=== PATIENT | male | born 1975 | race Caucasian/White ===

== ENCOUNTER 2018-08-31 12:24 | Outpatient (CLI) | payer OTHER, SELFPAY ==
[2018-09-01 16:44] LABS: Black/White Pepper IgE <0.35 kU/L; Celery IgE 0.47 kU/L; Clam IgE <0.35 kU/L; Crab IgE 5.86 kU/L; Green Pepper IgE <0.35 kU/L; Lobster IgE 1.56 kU/L; Oyster IgE 0.41 kU/L; Scallop IgE 5.76 kU/L; Shrimp IgE 7.65 kU/L
== END 2018-08-31 12:44 ==
PROVIDERS: PCP Neuromusculoskeletal Medicine & OMM; Visit Provider Internal Medicine
DX: Z01.82 Encounter for allergy testing (principal); T78.40XA Allergy, unspecified, initial encounter
CPT/HCPCS: 36415; 86003

== ENCOUNTER 2020-02-29 07:13 | Outpatient (REF) | payer OTHER, SELFPAY ==
[2020-02-29 07:45] LABS: ALT 115 U/L (16-63); AST 58 U/L (15-37); Albumin 3.9 g/dL (3.4-5.0); Alkaline Phosphatase 87 U/L (46-116); Anion Gap 8.2 mmol/L (3-11); BUN 18 mg/dL (7-18); Bilirubin, Total 0.3 mg/dL (0.2-1.0); CO2 29.8 mmol/L (21.0-32.0); CREATININE 1.15 mg/dL (0.70-1.30); Calcium 9.2 mg/dL (8.5-10.1); Calculated LDL 133 mg/dL (<100); Chloride 100 mmol/L (98-107); Cholesterol 198 mg/dL (<200); Glucose 121 mg/dL (74-106); HDL Cholesterol 28 mg/dL (40-60); Potassium 4.6 mmol/L (3.5-5.1); Sodium 138 mmol/L (136-145); Total Protein 7.3 g/dL (6.4-8.2); Triglyceride 186 mg/dL (<150)
== END 2020-02-29 07:33 ==
LOC: LBN 07:13
PROVIDERS: PCP Nurse Practitioner Family; Visit Provider Neuromusculoskeletal Medicine & OMM
DX: I10 Essential (primary) hypertension (principal); E78.2 Mixed hyperlipidemia
CPT/HCPCS: 80053; 80061

== ENCOUNTER 2020-09-28 14:50 | Emergency (ER) | payer OTHER, SELFPAY ==
[2020-09-28 14:53] VITALS: BP 177/99; PULSE 94; RESP 18; TEMP 36.7; O2SAT 100
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
== END 2020-09-28 16:25 | disposition home or self-care (01) ==
PROVIDERS: Emergency Provider Physician Assistant; PCP Nurse Practitioner Family
DX: S42.431A Displaced fracture (avulsion) of lateral epicondyle of right humerus, initial encounter for closed fracture (principal); S70.12XA Contusion of left thigh, initial encounter; V03.09XA Pedestrian with other conveyance injured in collision with car, pick-up truck or van in nontraffic accident, initial encounter; Y99.0 Civilian activity done for income or pay; I10 Essential (primary) hypertension
CPT/HCPCS: 90471; 99284; 73080; L3670

== ENCOUNTER 2024-07-12 09:48 | Outpatient (CLI) | payer OTHER, SELFPAY ==
[2024-07-12 12:31] LABS: Abs Immature Grans 0.01 10^3/uL (0.0-0.06); Absolute Basophil Count 0.04 10^3/uL (0.0-0.2); Absolute Eosinophil Count 0.31 10^3/uL (0.0-0.7); Absolute Lymphocyte Count 1.72 10^3/uL (1.2-3.4); Absolute Monocyte Count 0.45 10^3/uL (0.1-0.8); Absolute Neutrophil Count 2.46 10^3/uL (1.2-6.7); Basophils % 0.8 %; Eosinophils % 6.2 %; HCT 48.4 % (40.0-50.0); HGB 16.6 g/dL (13.5-17.5); Immature Grans % 0.2 %; Lymphocytes % 34.5 %; MCH 32.9 pg (27.0-33.0); MCHC 34.3 % (32.0-36.0); MCV 96 fL (80-95); MPV 9.8 fL (8.0-11.0); Neutrophils % 49.3 %; Platelet Count 121 10^3/uL (130-400); RBC 5.04 10^6/uL (4.36-5.78); RDW 11.9 % (11.8-14.1); WBC 4.99 10^3/uL (4.4-10.8)
[2024-07-12 12:46] LABS: ALT 146 U/L (16-63); AST 89 U/L (15-37); Albumin 4.1 g/dL (3.4-5.0); Alkaline Phosphatase 145 U/L (46-116); Anion Gap 7.3 mmol/L (3-11); BUN 23 mg/dL (7-18); Bilirubin, Total 0.73 mg/dL (0.2-1.0); CO2 30.7 mmol/L (21.0-32.0); CREATININE 1.2 mg/dL (0.70-1.30); Calcium 10.7 mg/dL (8.5-10.1); Chloride 97 mmol/L (98-107); Glucose 395 mg/dL (74-106); Potassium 4.6 mmol/L (3.5-5.1); Sodium 135 mmol/L (136-145); Total Protein 8.6 g/dL (6.4-8.2)
== END 2024-07-12 09:49 | disposition home or self-care (01) ==
LOC: LOS 09:49
PROVIDERS: PCP Neuromusculoskeletal Medicine & OMM; Referring Provider Nurse Practitioner Family; Visit Provider Nurse Practitioner Family
DX: R21 Rash and other nonspecific skin eruption (principal); L98.9 Disorder of the skin and subcutaneous tissue, unspecified; L25.9 Unspecified contact dermatitis, unspecified cause
CPT/HCPCS: 36415; 80053; 85025; 87070; 87205

== ENCOUNTER 2024-10-08 12:51 | Day surgery (SDC) | payer BC, SELFPAY ==
--- NOTE | 2024-10-07 20:21 | COLE_ITS ---
Date of service: 10/08/24 Time of Service: 16:30 Colonoscopy Report Date of procedure: 10/08/24 Pre-op diagnosis general: CRC screening/hx of BRBPR Post-op diagnosis procedure note: other (polyps ) Surgeon: Winnie Diaz Anesthesia Type: General:No Airway Estimated blood loss (mL): 3 Pathology: other Complications: None Disposition: same day Prep: Miralax/Dulcolax Retraction Time: 21 Procedure Description: After informed consent was obtained, explaining risks of the procedure, including but not limits to: bleeding, infections, complications of anesthesia, perforations (which may require antibiotics and /or surgery and stay in the hospital), and abdominal pain/cramping. The patient was taken to the procedure room and placed in a left decubitous position. Monitors were applied and a time out was done. The patients name, date of , procedure, allergies to medications and metal in their body was reviewed. The patient was then sedated. Once sedated and comfortable a rectal exam was done. External exam was normal. Internal exam revealed a normal sphincter tone and no palpable masses. The prostate no palpable masses noted today. The previously lubricated Olympus scope was then introduced (see RN notes for scope number) and retrofelexed. No internal hemorrhoids were identified. The scope was then advanced to the cecum without difficulty. The TI and appendiceal orifice were identified. The scope was then slowly retracted over 21 minutes back into the rectum. Polyps: A 1.5cm peduculated polyp polyp was found at 60cm. This is on a long stalk. This was removed with a cold snare. A clip was placed across the defect. A pedunculated 2cm polyp was found at 40cm. This is also on a long stalk. This was removed with a cold snare. The clip was placed across the decft. All of the specimen was retrieved. This will be sent to pathology. There is no bleeding noted from the polypectomy site. Diverticula: none. The mucosa is pink and healthy w/ a normal vascular pattern. The scope was removed, and the patient was woken up and taken back to Same day surgery in stable condition. The patient tolerated the procedure well and there were no immediate complications. Follow up: The patient should follow up in 2-3 years, unless they develop changes in bowel habits or other new gastrointestinal complaints. [place] Bowel Prep [place] Bowel Prep Right Colon: 2 Left Colon: 2 Transverse Colon: 2 Total Score: 6
--- NOTE | 2024-10-07 20:23 | PDOC.DSDIS_ITS ---
Date of service: 10/08/24 Time of Service: 16:41 Discharge Plan Disposition Patient Disposition: Home Condition: Good Discharge Details Reason For Visit: colon cancer screening Attending Provider: Winnie Diaz Primary Care Provider: Leo Caldwell Home Meds and New Rx's Prescriptions: Continued triamcinolone acetonide 0.1 % cream 1 applic topical BID PRN (Reason: rash) Qty: 30 0RF Rx Instructions: apply to affected area 2x daily as needed metformin 500 mg tablet 500 mg PO DAILY Mounjaro 5 mg/0.5 mL pen injector 5 mg subcut QWEEK omeprazole 40 MG capsule,delayed release(DR/EC) 1 cap PO DAILY Discontinued bisacodyl [Dulcolax (bisacodyl)] 5 mg tablet,delayed release (DR/EC) 5 mg PO ONCE Qty: 4 0RF Rx Instructions: Take per colonoscopy instructions provided by ordering providers office polyethylene glycol 3350 17 gram/dose powder 17 g PO ONCE Qty: 238 0RF Rx Instructions: Take per colonoscopy instructions provided by ordering providers office Discharge Instructions Additional Instructions: DSU Colonoscopy Post- Op Instructions Instructions for Everyone who is given Anesthesia: For your safety, please do the following for the next twenty-four (24) hours: *Do Not operate a motor vehicle (car, truck, motorcycle, etc.) *Do Not drink alcoholic beverages or use any recreational drugs for the first 24 hours or while taking pain medications. The medications in your body may have a reaction that can be dangerous. *Do Not make any important decisions or sign any important papers. Findings: x2 large polyps Follow up: My office will send you a letter with the results of the biopsy and when we want to repeat your colonoscopy, most likely 2-yrs. 1. No lifting over 20 pounds or strenuous activity for the first 24 hours after your procedure. After 24 hours there are no restrictions on your activity but you may feel fatigued for a few days. 2. After you arrive home you may have a light meal and return to your normal diet as you can tolerate it without feeling sick to your stomach. 3. You may have a bloated, gaseous feeling in your belly (abdomen) after a colonoscopy. Passing gas and belching will help. Walking or lying down on your left side with your knees flexed may relieve the discomfort. Call the office at [phone] (Office) or [phone] (Hospital) right away if you notice any of the following: a.Vomiting of blood or ?coffee ground stools?. b.Rectal bleeding 1Tbsp, blood clots or continuous bleeding. c.Severe belly (abdominal) pain. d.A hard distended belly (abdomen) and an inability to pass gas. 4. Please don?t expect to have a normal BM (bowel movement) for 2-3 days after your procedure. 5. If there are questions regarding the findings of your procedure, please contact your doctor 6. If you are unable to contact your doctor with a problem, contact the hospital at [phone]. 7. Continue all your regular medications unless directed otherwise. I understand the above instructions and have no questions. Signature of Patient or Adult Escort Name of Responsible Adult Escort Signature of Nurse Date/Time Stand Alone Forms: Anesthesia Discharge Jose Haro (DSU) Activity:: see above Diet:: see above Discharge Orders Discharge Orders: Discharge Order (Routine); Ordered 10/08/24 Ordered By: Winnie Diaz DS: Diagnosis Discharge Diagnosis (1) Screening for malignant neoplasm of colon performed: Status: Acute Asessment and Plan: The patient is seen and examined after their colonoscopy.? The patient has been able to pass gas.? They are not having abdominal pain.? They have been able to tolerate liquids and a snack.? They do not have any nausea or vomiting.? They are not having any chest pain or shortness of breath.??? They are not having any rectal bleeding. Their vital signs have been stable-see nursing notes. We discussed findings during their colonoscopy, and any biopsies that were done/polyps that were removed. The patient will be sent a letter with any biopsy results, and when to repeat the colonoscopy.-see discharge instructions. Patient was given explicit instructions to follow-up regarding colonoscopy-refer to discharge instructions.? We reviewed resumption of medications. Patient verbalized understanding and discharged in stable and satisfactory condition- See nursing notes. (2) Type 2 diabetes mellitus: (3) Hypertension: Status: Chronic (4) Chronic GERD: Status: Acute (5) Adenomatous polyps: Status: Acute
[2024-10-08 13:11] VITALS: BP 139/90; PULSE 98; RESP 20; TEMP 36.3; O2SAT 100
[2024-10-08] MEDS: Normal Saline Flush 10 ML SYR IV (13:24)
[2024-10-08 14:17] VITALS: BMI 30.2
--- NOTE | 2024-10-08 14:17 | W.ANESPRE ---
General Info Date of Service Date Performed: 10/08/24 Height: 6 ft 2 in Weight: 106.9 kg Body Mass Index (BMI): 30.2 Surgical Procedure: Operation Date: 10/08/24 13:20 Proposed Procedure Side Surgeon jojo Diaz, DO Meds Allergies and Home Medications Allergies Allergy/AdvReac Type Severity Reaction Status Date / Time shellfish derived Allergy Severe Swelling/Ed Verified 10/08/24 13:10 jyoti blueberry (Blueberry) Allergy Mild Hives Verified 10/08/24 13:10 diphenhydramine HCl (From AdvReac Mild Swelling/Ed Verified 10/08/24 13:10 Benadryl) jyoti Home Medication ?Medication ?Instructions ?Recorded omeprazole 40 mg capsule,delayed 1 cap PO DAILY 08/03/14 release triamcinolone acetonide 0.1 % 1 applic topical BID PRN rash #30 07/12/24 topical cream grams metformin 500 mg tablet 500 mg PO DAILY 09/23/24 tirzepatide 5 mg/0.5 mL 5 mg subcut QWEEK 09/23/24 subcutaneous pen injector (Miracle) Current Visit Medications: Current Medications Generic Name Dose Route Start Last Admin Trade Name Freq PRN Reason Stop Dose Admin Hyoscyamine Sulfate 0.125 mg 10/08/24 08:19 Hyoscyamine 0.125 Mg Sl/Oral/Chew SL 11/07/24 08:18 DIRECTED PRN Ringer's Solution 1,000 mls @ 80 mls/hr 10/08/24 06:00 IV 10/08/24 23:59 INFUSION WHITNEY Ringer's Solution 500 mls @ 80 mls/hr 10/08/24 06:00 IV 10/08/24 23:59 INFUSION WHITNEY IV Miscellaneous Supplies 1 each 10/08/24 06:00 Iv Access IV 10/08/24 23:59 DIRECTED WHITNEY Ondansetron HCl 4 mg 10/08/24 08:19 Ondansetron 4 Mg/2 Ml Vial IVP 11/07/24 08:18 Q4H PRN PRN Nausea / Vomiting Sodium Chloride 0 ml 10/08/24 06:00 10/08/24 13:24 Normal Saline Flush 10 Ml Syr IV 10/08/24 23:59 10 ml PRN PRN Administration Sodium Chloride 0 ml 10/08/24 06:00 Normal Saline 10 Ml Vial IJ 10/08/24 23:59 DIRECTED PRN Sterile Water 0 ml 10/08/24 06:00 Water,Injection,Sterile 10 Ml Vial IJ 10/08/24 23:59 DIRECTED PRN PFSH Active Problems Active Problems: Problem Status Onset Code Screening for malignant neoplasm of colon performed Acute Z12.11 Right shoulder injury Acute 09/28/20 S49.91XA Left anterior shoulder pain Acute M25.512 Hypertension Chronic I10 Chronic GERD Acute K21.9 Medical History Medical History Tietze disease Type 2 diabetes mellitus Surgical History Surgical History (Updated 10/08/24 @ 13:25 by Rani Samuel) History of colonoscopy (~09/2024) Hx of wisdom tooth extraction 20 years ago Tobacco Smoking/Tobacco Use Status: Former Tobacco Use Alcohol Alcohol Intake: current Alcohol intake frequency: holidays/special occasions only Substance Use Substance use: Never Substance use type: does not use Vital Signs and Lab Results Vital Signs Most Recent Vital Signs in EMR: Most Recent Vital Signs Temp Pulse Resp BP Pulse Ox 36.3 C L 98 H 20 139/90 100 10/08/24 13:11 10/08/24 13:11 10/08/24 13:11 10/08/24 13:11 10/08/24 13:11 Point of Care Results Point of Care Results: Finger Stick Blood Glucose 89 10/08/24 13:08 Lab Results Blood Type / Crossmatch: No Data to Display Complete Blood Count: No Data to Display Complete Metabolic Panel: No Data to Display Liver Function Panel: No Data to Display Coagulation Panel: No Data to Display Cardiac Panel: No Data to Display Arterial Blood Gas: No Data to Display Venous Blood Gas: No Data to Display Pancreas Panel: No Data to Display Thyroid Panel: No Data to Display Infectious Disease: No Data to Display Blood Cultures: No Data to Display Toxicology Panel: No Data to Display Imaging and Studies Imaging and Studies Study information below may be from another EMR and interpreted by another provider. Please see original notes in EMR for more complete details. Stress Test Summary: SUMMARY: Normal stress test after maximal exercise with nonsignificant ST-T segment changes and no reproduction of symptoms. Good exercise capacity. 08/03/14 Anesthesia Assessment and Plan Anesthesia History Personal History: Other (rough wake ups, can be combative) Family History: No Family History of Anesthesia Complications Exercise Tolerance Exercise Tolerance: Metabolic Equivalents>4 Pertinent Negatives Pertinent Negatives: No Symptoms of GERD, No Major Cardiovascular Symptoms or Complaints, No Major Pulmonary Symptoms or Complaints and No History of CVA/TIA Cardiac & Pulmonary Exam Cardiac Exam: Normal S1/S2 Heart Sounds Pulmonary Exam: Clear Bilateral Breath Sounds Implantable Cardiac Device Does patient have a Pacemaker or an ICD?: No Airway Exam Known Difficult Airway: No Mallampati Class: 3 Mouth Opening: Normal (> 3cm) Thyromental Distance: Greater than 3 cm Neck Range of Motion: Full ROM Neck Circumference: Normal Teeth Condition: Normal Dentition ASA Classification ASA Score: ASA 2 Emergency Case?: No NPO Status NPO Status: NPO Clears >2 hours, Solids >8 hours Anesthesia Plan Resuscitation Status: Full Code Anesthesia Technique: General Anesthesia Airway Planned: Natural Airway Monitors Used: Standard Monitors
--- NOTE | 2024-10-08 14:57 | BOWEL_PTH ---
PATIENT: Epi Sparrow LOC: [facility] U#:[id number] AGE/SX: 48/M ROOM: RE10/08/[address]: Winnie Diaz : 1975 BED: DIS: 10/08/2024 SPEC #: [id number] RECD: 10/08/24 18:09 STATUS: RODY RE #: [id number] MOE: 10/08/24 14:[address]: Winnie Diaz DEPT: Surgical Specimen RECD BY: Korina Crum ENTERED: 10/08/24 18:10 SP TYPE: Bowel OTHR DR: Leo Caldwell Tissues: 1 - BIOPSY BOWEL 2 - BIOPSY BOWEL Procedures: GROSS AND MICRO LEVEL 4 Comments: [id number]
[2024-10-08] MEDS: Glucagon 1 MG VIAL (15:25)
[2024-10-08] MEDS: Water,Injection,Sterile 10 ML VIAL (15:25)
[2024-10-08 15:36] VITALS: BP 121/81; PULSE 87; RESP 16; TEMP 36.1; O2SAT 96
[2024-10-08 16:09] VITALS: BP 123/75; PULSE 73; RESP 16; TEMP 36.5; O2SAT 99
--- NOTE | 2024-10-08 16:22 | W.ANESPOSTOP ---
Postoperative Evaluation Date, Time and Location Date Performed: 10/08/24 Time Performed: 16:22 Patient Location: Day Surgery Unit Vital Signs Most Recent Imported Vital Signs: Most Recent Vital Signs Temp Pulse Resp BP Pulse Ox 36.5 C 73 16 123/75 99 10/08/24 16:09 10/08/24 16:09 10/08/24 16:09 10/08/24 16:09 10/08/24 16:09 Pain Score Most Recent Pain Score: Most Recent Pain Score Pain Level 0 10/08/24 16:09 Assessment Mental Status: Awake (Alert & Oriented to Patient Baseline) Airway and Respiratory Function: Patent airway with normal (patient baseline) respiratory exam Cardiovascular Function: Hemodynamically Stable Hydration Status: Adequately Hydrated Nausea & Vomiting: No Nausea or Vomiting Pain: Pt. Denies Any Pain Peripheral Nerve Block: Patient did not receive a nerve block
== END 2024-10-08 17:19 | disposition home or self-care (01) ==
LOC: SUR 12:51
PROVIDERS: PCP Neuromusculoskeletal Medicine & OMM; Visit Provider Surgery
PROC: 0DJD8ZZ Inspection of Lower Intestinal Tract, Via Natural or Artificial Opening Endoscopic (ICD-10-PCS; CPT 45378; principal; 2024-10-08 13:15)
DX: Z12.11 Encounter for screening for malignant neoplasm of colon (principal); E11.9 Type 2 diabetes mellitus without complications; I10 Essential (primary) hypertension; D12.4 Benign neoplasm of descending colon; D12.5 Benign neoplasm of sigmoid colon
CPT/HCPCS: 45380; 88305; J1610; J2704

== ENCOUNTER 2024-10-12 14:29 | Outpatient (CLI) | payer BC, SELFPAY ==
[2024-10-12 12:40] LABS: Hemoglobin A1C 6.2 % (<5.7)
[2024-10-12 12:46] LABS: ALT 43 U/L (16-63); AST 31 U/L (15-37); Albumin 4.2 g/dL (3.4-5.0); Alkaline Phosphatase 91 U/L (46-116); Anion Gap 6.7 mmol/L (3-11); BUN 22 mg/dL (7-18); Bilirubin, Total 0.46 mg/dL (0.2-1.0); CO2 29.3 mmol/L (21.0-32.0); CREATININE 1.1 mg/dL (0.70-1.30); Calcium 10.2 mg/dL (8.5-10.1); Chloride 104 mmol/L (98-107); Estimated GFR 82.81 (mL/min/1.73m2); Glucose 93 mg/dL (74-106); Potassium 4.5 mmol/L (3.5-5.1); Sodium 140 mmol/L (136-145); Total Protein 8.3 g/dL (6.4-8.2)
== END 2024-10-12 14:30 | disposition home or self-care (01) ==
LOC: LBO 14:29
PROVIDERS: PCP Neuromusculoskeletal Medicine & OMM; Visit Provider Specialist/Technologist Athletic Trainer
DX: E11.9 Type 2 diabetes mellitus without complications (principal); L30.9 Dermatitis, unspecified
CPT/HCPCS: 36415; 80053; 83036

== ENCOUNTER 2025-01-10 10:57 | Emergency (ER) | payer OTHER, SELFPAY ==
[2025-01-10 11:27] VITALS: BP 138/88; PULSE 87; RESP 12; TEMP 36.9; O2SAT 97
[2025-01-10 13:30] VITALS: BP 135/90; PULSE 88; O2SAT 97
[2025-01-10 13:48] VITALS: BP 130/94; PULSE 89; RESP 15; O2SAT 97
--- NOTE | 2025-01-10 16:17 | ED.GENADUL_ITS ---
Discharge Plan Disposition Patient Disposition: Home Discharge Details Clinical Impression: Inguinal hernia Primary Care Provider: Darryl Miller ED Provider: Bhavani Mitchell Home Meds and New Rx's Prescriptions: No Action metformin 500 mg tablet 500 mg PO DAILY Mounjaro 5 mg/0.5 mL pen injector 5 mg subcut QWEEK omeprazole 40 MG capsule,delayed release(DR/EC) 1 cap PO DAILY miconazole nitrate 2 % cream 1 applic topical BID Qty: 28 2RF Discharge Instructions Instructions: Groin Hernia (DC) Additional Instructions: You have a hernia in your right inguinal area. If the area bulges out or you notice pain, you can lay flat, and apply gentle pressure to reduce the area like we discussed If your pain is severe or you are unable to push the area back in, please return to the emergency department. Please make adjustments in your lifting and make sure that you are using safe techniques to try and prevent the hernia from reoccurring. The likelihood that it will recur is fairly high. As long as you can get it reduced at home, then you do not need to return to the emergency department. A referral has been placed to general surgery clinic for you to schedule follow- up and discuss surgical repair Discharge Data Discharge Date/Time-TO BE ENTERED AT DEPARTURE: 01/10/25 13:49 HPI General Date/Time Provider Initiated Documentation: 01/10/25 11:35 . Limitations to Documentation: no limitations . Information obtained by: patient . HPI Narrative: 49-year-old gentleman with past medical history of hypertension presents for evaluation of right inguinal pain. The patient reports that 2 days ago he was doing some heavy lifting with his work and he noticed a bulge. This was in the groin extended into his right testicle. He reports that there is some mild pain. No significant pain in his abdomen, no fever or vomiting. He reports that he sat down and the bulge went back in. He did not have any return of symptoms the next day but he just cannot hung out at home and did not really do any activity. He reports that today he went back to work and noted that he did have a return of the bulge when he was doing some lifting. 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 He states that the bulge came out and he became very concerned that he had a hernia he did not attempt to put it back in and so he came to the emergency department. Related Data Home Medications ?Medication ?Instructions ?Recorded ?Confirmed omeprazole 40 mg capsule,delayed 1 cap PO DAILY 08/03/14 01/10/25 release metformin 500 mg tablet 500 mg PO DAILY 09/23/24 01/10/25 tirzepatide 5 mg/0.5 mL 5 mg subcut QWEEK 09/23/24 01/10/25 subcutaneous pen injector (Miracle) miconazole nitrate 2 % topical 1 applic topical BID #28 grams 10/08/24 01/10/25 cream Previous Rx's ?Medication ?Instructions ?Recorded miconazole nitrate 2 % topical 1 applic topical BID #28 grams 10/08/24 cream Allergies Allergy/AdvReac Type Severity Reaction Status Date / Time shellfish derived Allergy Severe Swelling/Ed Verified 01/10/25 11:30 jyoti blueberry (Blueberry) Allergy Mild Hives Verified 01/10/25 11:30 diphenhydramine HCl (From AdvReac Mild Swelling/Ed Verified 01/10/25 11:30 Benadryl) jyoti General Stated Complaint: Abd Prob KILO: 3 Exam Narrative Exam Narrative: Review of Systems: All systems reviewed & are unremarkable except as noted in HPI and below Well-developed, no acute distress NCAT RRR Unlabored respiratory effort Nondistended abdomen , soft nt exam performed with nurse contact lens polisher. There is no testicular tenderness or scrotal enlargement, there is a right inguinal hernia. With mild pressure, this was reduced Course Vital Signs Vital signs: Vital Signs Temperature 36.9 C 01/10/25 11:27 Pulse 87 01/10/25 11:27 Respiratory Rate 12 01/10/25 11:27 Blood Pressure 138/88 01/10/25 11:27 Pulse Oximetry 97 01/10/25 11:27 Temperature 36.9 C 01/10/25 11:27 Temperature Source Oral 01/10/25 13:30 Pulse 89 01/10/25 13:48 Respiratory Rate 15 01/10/25 13:48 Blood Pressure 130/94 H 01/10/25 13:48 Blood Pressure Position Sitting 01/10/25 13:30 Pulse Oximetry 97 01/10/25 13:48 Oxygen Delivery Method Room Air 01/10/25 13:30 Oxygen Flow Rate 0 01/10/25 13:30 Pain Level 5 01/10/25 13:30 Medical Decision Making Emergent evaluation of inguinal hernia. On evaluation the patient does have a noted right inguinal hernia. There is no testicular involvement to make me think that there is testicular torsion or other scrotal abnormality. He has a benign abdominal exam. With some gentle pressure, the hernia reduced without complication. I do not have a high suspicion for an incarceration given the easy reduction now on multiple occasions. Given the increasing frequency of this hernia and the work that he does, the patient would likely benefit from outpatient surgical consultation and repair. We discussed signs and symptoms concerning for incarcerated hernia that would require an emergent return to the emergency department. We also discussed reduction techniques to use at home. And suggested that he do try these techniques prior to coming to the emergency department if the hernia does return. Referral has been placed for general surgery. Quality:SDOH Health Related Social Needs: No Data to Display PFSH All Active Problems (Updated 01/10/25 @ 13:41 by Bhavani Mitchell MD) Inguinal hernia (Acute) Adenomatous polyps (Acute) Screening for malignant neoplasm of colon performed (Acute) Right shoulder injury (Acute 09/28/20) Left anterior shoulder pain (Acute) Hypertension (Chronic) Chronic GERD (Acute) Medical History (Updated 01/10/25 @ 13:41 by Bhavani Mitchell MD) Tubular adenoma of colon (~09/2024) Tietze disease Type 2 diabetes mellitus Surgical History (Updated 10/08/24 @ 13:25 by Rani Samuel) History of colonoscopy (~09/2024) Hx of wisdom tooth extraction 20 years ago Social History Smoking/Tobacco Use Status: Former Tobacco Use Quit Date: 11/24/13 Smoking risk assessment performed?: Yes Alcohol Intake: current Alcohol Intake frequency: holidays/special occasions only Drug use: Never Substance use type: does not use Household members: family Education Level: high school Details: GED Do you feel safe at home: Yes Do you feel safe in your relationship?: Yes
== END 2025-01-10 13:49 | disposition home or self-care (01) ==
PROVIDERS: Emergency Provider Emergency Medicine; PCP Radiology Radiation Oncology
DX: K40.90 Unilateral inguinal hernia, without obstruction or gangrene, not specified as recurrent; R10.2 Pelvic and perineal pain
CPT/HCPCS: 99283

== ENCOUNTER 2025-01-12 02:28 | Outpatient (CLI) | payer OTHER, SELFPAY ==
[2025-01-12 17:30] LABS: Hemoglobin A1C 5.3 % (<5.7)
== END 2025-01-12 02:29 | disposition home or self-care (01) ==
LOC: LBO 02:28
PROVIDERS: PCP Radiology Radiation Oncology; Visit Provider Specialist/Technologist Athletic Trainer
DX: E11.9 Type 2 diabetes mellitus without complications (principal)
CPT/HCPCS: 36415; 80048; 83036

== ENCOUNTER 2025-01-19 08:10 | Day surgery (SDC) | payer OTHER, SELFPAY ==
[2025-01-19] VITALS (25 sets, daily range): BP systolic 105–148; BP diastolic 56–90; PULSE 64–95; RESP 10–23; TEMP 36.3–36.6; O2SAT 93–99; BMI 27.6
[2025-01-19] MEDS: Lactated Ringers 1,000 ML 80 ML IV (09:14)
[2025-01-19] MEDS: Heparin 5,000 UNITS/ML VIAL 5000 UNITS SC (09:30)
--- NOTE | 2025-01-19 09:57 | W.ANESPRE ---
General Info Date of Service Date Performed: 01/19/25 Height: 6 ft 2 in Weight: 97.6 kg Body Mass Index (BMI): 27.6 Surgical Procedure: Operation Date: 01/19/25 09:40 Proposed Procedure Side Surgeon p Hernia Inguinal Laparoscopic right, possible left Right Delio Clancy MD Actual Procedure Side Surgeon p Hernia Inguinal Laparoscopic right, possible left Right Delio Clancy MD Pre-Op Diagnosis Post-Op Diagnosis Bilateral inguinal hernia Meds Allergies and Home Medications Allergies Allergy/AdvReac Type Severity Reaction Status Date / Time shellfish derived Allergy Severe Swelling/Ed Verified 01/19/25 08:47 jyoti blueberry (Blueberry) Allergy Mild Hives Verified 01/19/25 08:47 diphenhydramine HCl (From AdvReac Mild Swelling/Ed Verified 01/19/25 08:47 Benadryl) jyoti Home Medication ?Medication ?Instructions ?Recorded omeprazole 40 mg capsule,delayed 1 cap PO DAILY 08/03/14 release metformin 500 mg tablet 500 mg PO DAILY 09/23/24 tirzepatide 5 mg/0.5 mL 5 mg subcut QWEEK 09/23/24 subcutaneous pen injector (Miracle) Current Visit Medications: Current Medications Generic Name Dose Route Start Last Admin Trade Name Freq PRN Reason Stop Dose Admin Heparin Sodium (Porcine) 5,000 units 01/19/25 06:00 01/19/25 09:30 Heparin 5,000 Units/Ml Vial SC 01/19/25 23:59 5,000 units PREOP WHITNEY Administration Ringer's Solution 1,000 mls @ 80 mls/hr 01/19/25 06:00 01/19/25 09:14 IV 02/17/25 23:59 80 mls/hr INFUSION WHITNEY Administration IV Miscellaneous Supplies 1 each 01/19/25 06:00 Iv Access IV 02/17/25 23:59 DIRECTED WHITNEY Sodium Chloride 0 ml 01/19/25 06:00 Normal Saline Flush 10 Ml Syr IV 02/17/25 23:59 PRN PRN Sodium Chloride 0 ml 01/19/25 06:00 Normal Saline 10 Ml Vial IJ 02/17/25 23:59 DIRECTED PRN Sterile Water 0 ml 01/19/25 06:00 Water,Injection,Sterile 10 Ml Vial IJ 02/17/25 23:59 DIRECTED PRN PFSH Active Problems Active Problems: Problem Status Onset Code Bilateral inguinal hernia Acute K40.20 Inguinal hernia Acute K40.90 Adenomatous polyps Acute D36.9 Screening for malignant neoplasm of colon performed Acute Z12.11 Right shoulder injury Acute 09/28/20 S49.91XA Left anterior shoulder pain Acute M25.512 Hypertension Chronic I10 Chronic GERD Acute K21.9 Medical History Medical History Tubular adenoma of colon (~09/2024) Tietze disease Type 2 diabetes mellitus Medical History Comments:: Per pt. states when he had his wisdom teeth out, he was very emotional, and felt violent, however had a colonoscopy recently and stated he did great then Surgical History Surgical History History of colonoscopy (~09/2024) Hx of wisdom tooth extraction 20 years ago Tobacco Smoking/Tobacco Use Status: Former Tobacco Use Alcohol Alcohol Intake: current Alcohol intake frequency: holidays/special occasions only Substance Use Substance use: Never Substance use type: does not use Vital Signs and Lab Results Vital Signs Most Recent Vital Signs in EMR: Most Recent Vital Signs Temp Pulse Resp BP Pulse Ox 36.3 C L 95 H 16 148/90 H 98 01/19/25 08:35 01/19/25 08:35 01/19/25 08:35 01/19/25 08:35 01/19/25 08:35 Point of Care Results Point of Care Results: Finger Stick Blood Glucose 102 01/19/25 08:41 Lab Results Blood Type / Crossmatch: No Data to Display Complete Blood Count: No Data to Display Complete Metabolic Panel: Hemoglobin A1c 5.3 % (<5.7) 01/12/25 14:55 Liver Function Panel: No Data to Display Coagulation Panel: No Data to Display Cardiac Panel: No Data to Display Arterial Blood Gas: No Data to Display Venous Blood Gas: No Data to Display Pancreas Panel: No Data to Display Thyroid Panel: No Data to Display Infectious Disease: No Data to Display Blood Cultures: No Data to Display Toxicology Panel: No Data to Display Imaging and Studies Imaging and Studies Study information below may be from another EMR and interpreted by another provider. Please see original notes in EMR for more complete details. Stress Test Summary: SUMMARY: Normal stress test after maximal exercise with nonsignificant ST-T segment changes and no reproduction of symptoms. Good exercise capacity. 08/03/14 Anesthesia Assessment and Plan Anesthesia History Personal History: Other Family History: No Family History of Anesthesia Complications Exercise Tolerance Exercise Tolerance: Metabolic Equivalents>4 Pertinent Negatives Pertinent Negatives: No Symptoms of GERD, No Major Cardiovascular Symptoms or Complaints and No Major Pulmonary Symptoms or Complaints Cardiac & Pulmonary Exam Cardiac Exam: Normal S1/S2 Heart Sounds Pulmonary Exam: Clear Bilateral Breath Sounds Implantable Cardiac Device Does patient have a Pacemaker or an ICD?: No Airway Exam Known Difficult Airway: No Mallampati Class: 3 Mouth Opening: Normal (> 3cm) Thyromental Distance: Greater than 3 cm Neck Range of Motion: Full ROM Neck Circumference: Normal Teeth Condition: Normal Dentition ASA Classification ASA Score: ASA 2 Emergency Case?: No NPO Status NPO Status: NPO Clears >2 hours, Solids >8 hours Anesthesia Plan Resuscitation Status: Full Code Anesthesia Technique: General Anesthesia Airway Planned: Endotracheal Tube Monitors Used: Standard Monitors and SedLine
[2025-01-19] MEDS: Normal Saline 20 ML VIAL (11:25)
[2025-01-19] MEDS: Bupivacaine LIPOSOME/PF 133 MG/10 ML VIAL IJ (11:25)
[2025-01-19] MEDS: Bupivacaine 0.25% Pres-Free W/EPI 30 ML VIAL (11:25)
--- NOTE | 2025-01-19 12:45 | W.PM.OP ---
Operative Note Operative Note Refer to Anesthesia Record Procedure Description: PROCEDURES PERFORMED: 1. Laparoscopic repair of primary reducible RIGHT inguinal hernia 2. Laparoscopic repair of primary reducible LEFT inguinal hernia 3. Laparoscopic bilateral TAP block Preoperative Diagnosis: Reducible primary right inguinal hernia, possible left inguinal hernia Postoperative Diagnosis: Bilateral direct inguinal hernias, fatty liver Surgeon: Tory Clancy Assist: Maya Anesthesia: General Anesthesiologist: Jillian Indication: Tender but reducible RIGHT inguinal hernia. Suspicion for asymptomatic left hernia on exam. Findings: Bilateral direct inguinal hernias without incarcerated contents. 3D Will mesh placed bilateral covering MPO bilateral. Complications: None Estimated Blood Loss: (5cc) Scant Specimens removed: None Grafts or implants: 3D will large mesh bilateral Procedure in detail: Written consent was obtained from the patient who was in agreement with the risks, the benefits and the indications for the procedure. The patient was taken to the operating suite and laid supine on the operating table with both arms tucked. IV antibiotics were not indicated and DVT prophylaxis had been given. Venodynes were in place. General anesthesia was administered which was tolerated very well. We then prepped and draped the abdomen in sterile fashion. A timeout was performed. When we were all in agreement we began the procedure. Local anesthetic was injected at each trocar site. Within the umbilicus a small stab incision was made and a 5 mm Optiview trocar was used to enter into the abdomen under direct visualization. The liver was inspected and did appear fatty incidentally. 2 other 5 mm port were placed under direct visualization and the umbilical port was upsized to a 12 mm to facilitate passing the mesh and sutures. I placed a bilateral TAP block under direct visualization. The patient was placed in Trendelenburg and we had good visualization of the intra-abdominal contents, pelvis and the bilateral pelvic sidewalls. Hernia defects are visible on both sides and are direct. No incarcerated contents in either one. In standard/usual fashion I created peritoneal flaps. A combination of blunt and sharp dissection was performed using the LigaSure. I was able to reduce the hernia sac out of the direct space on the right. I developed the space all the way medial to beyond the pubic tubercle midline. Stoney's ligament was clearly exposed as well as all 3 potential defects of the myopectineal orifice. I then turned my attention to the left side and exposed it in similar fashion. Hemostasis was excellent. Two 3D will mesh were introduced in usual fashion and laid perfectly within the spaces I had created. The indirect, direct as well as the femoral spaces were all completely covered with significant and adequate overlay. I sutured a corner of each mesh to Stoney's ligament with Vicryl and in the upper outer quadrant to the fascia with Vicryl to the mesh would not rotate or migrate. This was done on both sides. Next I closed both peritoneal flaps with the V-loc. Hemostasis was excellent. I closed the umbilical 12mm defect with 0 Vicryl. The 5 mm ports were removed. I closed the skin with Monocryl and put Dermabond on top. The sponge, instrument and sharps count was correct x3 at the end of the procedure. The patient tolerated the procedure well and was taken to the PACU in hemodynamically stable condition. Date of Procedure: 01/19/25
--- NOTE | 2025-01-19 13:58 | W.PM.DSUDISC ---
Date of service: 01/19/25 Discharge Plan Disposition Patient Disposition: Home Condition: Good Discharge Details Attending Provider: Delio Clancy Primary Care Provider: Darryl Miller Home Meds and New Rx's Prescriptions: No Action metformin 500 mg tablet 500 mg PO DAILY Mounjaro 5 mg/0.5 mL pen injector 5 mg subcut QWEEK omeprazole 40 MG capsule,delayed release(DR/EC) 1 cap PO DAILY Discharge Instructions Additional Instructions: INSTRUCTIONS: Incisions: Keep clean and dry but they do not need to be covered. It is okay to shower but no tub bathing for 1 week. You can peel the glue off after 1 week. Activity: As tolerated. Light duty without any heavy lifting/pulling or pushing for 6-8 weeks. Diet: Clear liquids for today. Regular diet as tolerated tomorrow. Medications: Resume any/all of your usual/regular home medications. Follow-up: If you are having any issues or concerns call the surgery office immediately. If you want to have a routine follow-up that is perfectly fine and you can call and schedule an. If everything is otherwise going well, you do not need to follow-up. Pain control: Take Tylenol, 1000 mg, every 6 hours on a schedule for the next 3 days. You can use ibuprofen in addition to Tylenol if desired. Don't use any narcotics. Overall: Symptoms should not be worsening. If you have any difficulty breathing or you have return of symptoms of brought you to the hospital or your pain is otherwise worsening each day and you should call the doctor's office or come into the hospital to be checked out. Activity:: Activity as Tolerated Diet:: As Tolerated
--- NOTE | 2025-01-19 14:03 | W.ANESPOSTOP ---
Postoperative Evaluation Date, Time and Location Date Performed: 01/19/25 Time Performed: 14:03 Patient Location: Day Surgery Unit Vital Signs Most Recent Imported Vital Signs: Most Recent Vital Signs Temp Pulse Resp BP Pulse Ox 36.6 C 71 16 114/74 94 01/19/25 13:40 01/19/25 13:40 01/19/25 13:40 01/19/25 13:40 01/19/25 13:40 Pain Score Most Recent Pain Score: Most Recent Pain Score Pain Level 4 01/19/25 13:40 Assessment Mental Status: Arousable with meaningful communication Airway and Respiratory Function: Patent airway with normal (patient baseline) respiratory exam Cardiovascular Function: Hemodynamically Stable Hydration Status: Adequately Hydrated Nausea & Vomiting: No Nausea or Vomiting Pain: Pain is tolerable per patient Peripheral Nerve Block: Patient did not receive a nerve block
== END 2025-01-19 15:13 | disposition home or self-care (01) ==
PROVIDERS: PCP Radiology Radiation Oncology; Visit Provider Student in an Organized Health Care Education/Training Program
PROC: (CPT 49650; principal; 2025-01-19 09:45)
DX: K40.20 Bilateral inguinal hernia, without obstruction or gangrene, not specified as recurrent (principal)
CPT/HCPCS: 49505; C1781; J0131; J0666; J1100; J1644; J1885; J2003; J2250; J2405; J2704; J3010

== ENCOUNTER 2025-02-14 03:48 | Inpatient (IN) | payer BC, SELFPAY ==
[2025-02-14] VITALS (72 sets, daily range): BP systolic 105–160; BP diastolic 56–102; PULSE 83–137; RESP 14–29; TEMP 36.1–38.1; O2SAT 88–99
--- NOTE | 2025-02-14 | DI.US_ITS ---
Exam(s) US SCROTUM EXAM: US SCROTUM CLINICAL HISTORY: S/P inguinal hernia repair - ? post op issue TECHNIQUE: Ultrasound of the testes performed using grayscale, color, and Doppler imaging. COMPARISON: US ABDOMEN ULTRASOUND (P) from 01/03/[address] ABDOMEN PELVIS W from 02/14/2025 FINDINGS: RIGHT HEMISCROTUM: The right testicle exhibits normal size and echo architecture with no evidence of intratesticular mas s. Vascular flow was demonstrated within the right testicle, including arterial waveforms. The epididymis appears unremarkable. There are no epididymal head cysts. There is a small right-sided hydrocele. LEFT HEMISCROTUM: The left testicle exhibits normal size and echo architecture with no evidence of intratesticular mass . Vascular flow is demonstrated within the left testicle, including arterial waveforms. The epididymis appears unremarkable. There are no epididymal head cysts. There is a very small left-sided hydrocele. OTHER: Scanning of the inguinal canals reveals separate non testicular findings which correspond to t findings on CT scan performed earlier today and are most probably hematomas within the bilateral i nguinal canals, right larger than left, with the right-sided inguinal canal finding measuring 2.9 cm length by approximately 1.5 cm wide and on the smaller left side measuring approximately 1.9 cm lengt h by 1 cm wide. There does not appear to be surrounding tissue hyperemia and no color flow within th chris findings. These are most probably bilateral inguinal canal hematomas versus complicated seromas IMPRESSION: 1. No evidence of testicular mass nor testicular torsion. Both testicles are within the scrotum and do not correspond to the findings described in the inguinal canals on the recent CT scan. 2. A small bilateral hydroceles, right larger than left 3. Findings in both inguinal canals with measurements as above and corresponding to the findings on t natalya's CT scan. These are most probably postoperative complicated seromas versus hematomas (or a com bination thereof); less likely abscesses given the lack of color flow hyperemia and lack of patient b eing exquisitely tender during scanning. Consider urology consultation DATA REPOSITORY:
--- NOTE | 2025-02-14 03:50 | ED.GENADUL_ITS ---
Discharge Plan Discharge Details Chief Complaint: GenMedical Clinical Impression: Severe sepsis Primary Care Provider: Darryl Miller ED Provider: Leo Vergara [place] Meds and New Rx's Prescriptions: No Action metformin 500 mg tablet 500 mg PO DAILY Mounjaro 5 mg/0.5 mL pen injector 5 mg subcut QWEEK omeprazole 40 MG capsule,delayed release(DR/EC) 1 cap PO DAILY HPI General Mode of arrival: ambulatory . Date/Time Provider Initiated Documentation: 02/14/25 03:49 . Limitations to Documentation: no limitations . Information obtained by: patient and RN notes reviewed . HPI Narrative: Patient presents to ED with complaint of not feeling well, generalized shaking. Patient reports that he started to feel unwell earlier today. Mostly just general malaise. Started to have some shakes and felt weak. Checked his blood sugar which was around 70. Had some glucose tablets and maple syrup with improvement of his sugar. He is not on insulin. He is only on metformin and tirzepatide. He just got a tattoo on his right forearm 36 hours ago. He had bilateral hernia repair about 3-1/2 weeks ago. He is having some abdominal pain but no vomiting or diarrhea. Denies any urinary symptoms. Denies any respiratory symptoms. Woke up in sweats this morning and is taking ibuprofen and acetaminophen. Was still having shaking chills and eventually came to ED for evaluation. Related Data Home Medications ?Medication ?Instructions ?Recorded ?Confirmed omeprazole 40 mg capsule,delayed 1 cap PO DAILY 08/03/14 02/14/25 release metformin 500 mg tablet 500 mg PO DAILY 09/23/24 02/14/25 tirzepatide 5 mg/0.5 mL 5 mg subcut QWEEK 09/23/24 02/14/25 subcutaneous pen injector (Mounjaro) Allergies Allergy/AdvReac Type Severity Reaction Status Date / Time shellfish derived Allergy Severe Swelling/Ed Verified 02/14/25 04:01 jyoti blueberry (Blueberry) Allergy Mild Hives Verified 02/14/25 04:01 diphenhydramine HCl (From AdvReac Mild Swelling/Ed Verified 02/14/25 04:01 Benadryl) jyoti General KILO: 3 Exam Narrative Exam Narrative: Const: WDWN male in NAD. VS per triage. HEENT: NC/AT. Normal facial exam. Neck: Supple. Trachea midline. Lungs: Normal respiratory effort. Lungs are clear. Cor: RRR without murmur. Good radial pulses. GI: Soft/ND. Mild diffuse tenderness, no guarding. Neuro: A+O x 3. Normal speech, mentation, gait. Cranial nerves II - XII grossly intact. No gross motor or sensory deficit. Ext: No C/C/E. Skin: Redness over the new tattoo, mostly related to irritation as expected, not consistent with cellulitis. Medical Decision Making Patient presenting to ED because of sweats and shaking chills. He is febrile to 100.6 here despite taking ibuprofen and acetaminophen at home. He is tachycardic to about 140. Thankfully his blood pressures for anything high 160/100. He does have some diffuse mild abdominal tenderness. He is status post bilateral hernia repair which was laparoscopic about 3-1/2 weeks ago. He had a tattoo about 36 hours ago. The erythema present is more consistent with the expected irritation and not cellulitis. He does not have respiratory symptoms. IV established and laboratory studies as well as blood cultures were obtained. Urinalysis and nasal swab obtained. Because of the abdominal tenderness and recent surgery will obtain CT abdomen pelvis. Liter of LR is ordered. 06:15 - Patient's lactic acid came back above 6. Patient ordered for total of 3 L of LR. Other laboratory findings show a normal white count with no bandemia. Venous pH 7.32. Kidney function little above baseline with creatinine 1.7 and anion gap 13.4. Electrolytes, liver function, lipase normal. His nasal swab returned negative. He has yet to urinate but just finished his third liter of LR. A repeat lactic is now normal. Preliminary reading of his CT abdomen pelvis is mostly unremarkable except for peripherally enhancing collections in the inguinal canal bilaterally. Case discussed with surgery. Unlikely for the collections in both inguinal canals to be abscess and most likely seroma or hematoma which are commonly present 1 to 2 months postop. Given no other clear finding of infection and given recent tattoo chest done we will obtain CT of the forearm to rule out deep tissue infection. Patient to be seen by surgery this morning. Patient and aware of findings so far, plan for CT of the forearm, surgical consult. I have not yet covered with antibiotics as I have no clear source for presumed infection given criteria for severe sepsis. He remains febrile and mildly tachycardic but his lactic acidosis has cleared. CT of the forearm and urinalysis are pending. Medical Records Medical records reviewed: Yes I reviewed the patient's medical records. Medical records narrative: Op notes Imaging Data Radiologic Study: Imaging: CT Scan Radiologist's impression: Prelim Read: IMPRESSION: 1. Peripherally enhancing collections in the inguinal canal bilaterally. Differential considerations include abscess, hematoma, testicular tissue, less likely neoplasm. Clinical correlation and comparison with prior studies may be helpful. 2. Additional findings as above. Lab Data Lab results reviewed: Yes I reviewed the patient's lab results. Lab results narrative: See MDM Critical Care Time Critical Care Time Critical Care Time: Yes Total Critical Care Time: 60 Attestation: Upon my evaluation, this patient had a high probability of imminent or life- threatening deterioration, which required my direct attention, intervention, and personal management. I have personally provided 60 minutes of critical care time exclusive of time spent on separately billable procedures. Time includes monitoring for potential decompensation, ordering of tests and medications, review of laboratory and radiology results, discussion with consultants and documentation . Interventions were performed as documented above in procedures. PFS All Active Problems (Updated 02/14/25 @ 06:23 by Leo Vergara MD) Severe sepsis (Acute) Medical History Hypertension Chronic GERD Tubular adenoma of colon (~09/2024) Type 2 diabetes mellitus Surgical History Hx of right inguinal hernia repair (~12/2024) Hx of left inguinal hernia repair (~12/2024) History of colonoscopy (~09/2024) Hx of wisdom tooth extraction 20 years ago Social History Smoking/Tobacco Use Status: Former Tobacco Use Quit Date: 11/24/13 Smoking risk assessment performed?: Yes Alcohol Intake: current Alcohol Intake frequency: holidays/special occasions only Drug use: Never Substance use type: does not use Household members: family Housing: house Education Level: high school Details: GED Do you feel safe at home: Yes Do you feel safe in your relationship?: Yes
--- NOTE | 2025-02-14 04:00 | DI.CT_ITS ---
Exam(s) CT ABDOMEN PELVIS W EXAM: CT ABDOMEN PELVIS W CLINICAL HISTORY: fever, abdominal pain, s/p hernia repair 3 weeks. TECHNIQUE: Imaging Protocol: Axial computed tomography images with coronal and sagittal reformatted images were created and reviewed CONTRAST MATERIAL: Intravenous: Omnipaque-350 85cc Oral: None COMPARISON: CT CT UPPER EXTREMITY RT WO from 02/14/2025 FINDINGS: VISUALIZED LUNG BASES: No nodules nor pleural effusions evident. ABDOMEN: There is no ascites evident in the upper abdomen.. LIVER: There is a small cyst or hemangioma in the left hepatic lobe which measures 8 x 7 mm. No dila lazarus intrahepatic ducts. GALLBLADDER/BILIARY: Gallstones are noted at the level the gallbladder fundus. Gallbladder is not di stended nor edematous. CBD is not dilated. PANCREAS: No evidence of pancreatic mass nor dilatation of the pancreatic duct. SPLEEN: Mild splenomegaly. Spleen measures 13.5 cm craniocaudal. There are no splenic lesions evide nt. Splenic and portal veins are patent. ADRENALS: There are no significant adrenal masses. KIDNEYS:No cysts evident. No solid renal masses. No calculi nor hydronephrosis.. ABDOMINAL AORTA: Abdominal aorta is not enlarged. LYMPH NODES:There is no retroperitoneal nor paraaortic adenopathy. ABDOMINAL WALL: There is mild subcutaneous streaking in the midline below the umbilicus level. No dr trish fluid collection at this level. this patient has had recent bilateral inguinal hernia surgery repair there are peripherally enha ncing findings in both inguinal canals. On the right side this measures 2.2 x 1.6 cm. On the left s fred measures 1.4 x 1.2 cm. Internal density measurement this average 39 HU. There is mild stranding in the anterior pelvic fat. PELVIS: GI: No evidence of appendicitis.No evidence of sigmoid diverticulitis. LYMPH NODES: There is no intrapelvic nor inguinal adenopathy. REPRODUCTIVE: Prostate size upper normal. Seminal vesicles unremarkable. URINARY BLADDER: No calculi nor obvious masses evident OSSEOUS: No fractures and no significant osseous lesions. Disc space narrowing L5-S1 level and less so at L4-5 level. IMPRESSION: 1. Findings in both inguinal canals as described above in this patient who has had recent inguinal he rnia repairs. Main considerations are possibility of the these being undescended testicles or possib ly testicles which have traveled cephalad since surgery. Other considerations are for abscesses with in the bilateral inguinal canals or hematomas. 2. Recommend follow-up testicular ultrasound to locate position of the patient's testicles. 3. Other findings as above First read by [facility]. Final report called by myself to ER physician 02/14/2025 at 12:48 p.m. Also called to hospitalist 02/14/2025 at 12:50 p.m. RADIATION DOSE DELIVERED: 620.57mGy.cm Total DLP DATA REPOSITORY: All CT scans at this facility are submitted to the National Radiology Data Registry (NRDR) Dose Index Registry (DIR) with the [employer] (ACR). RADIATION OPTIMIZATION: All CT scans at this facility use at least one of these dose optimization te chniques: automated exposure control; mA and/or kV adjustment per patient size (includes targeted exa ms where dose is matched to clinical indication); or iterative reconstruction.
[2025-02-14 04:22] LABS: BE (Venous) -1 mmol/L (-2-3); HCO3 (Venous) 26 mmol/L (23-28); O2 Sat (Venous) 44 %; TCO2 (Venous) 23 mmol/L (24-29); pCO2 (Venous) 50 mmHg (41-51); pH (Venous) 7.32 (7.31-7.41); pO2 (Venous) 28 mmHg
[2025-02-14 04:23] LABS: Abs Immature Grans 0.03 10^3/uL (0.0-0.06); Absolute Basophil Count 0.07 10^3/uL (0.0-0.2); Absolute Eosinophil Count 0.12 10^3/uL (0.0-0.7); Absolute Lymphocyte Count 2.85 10^3/uL (1.2-3.4); Absolute Monocyte Count 0.64 10^3/uL (0.1-0.8); Absolute Neutrophil Count 6.53 10^3/uL (1.2-6.7); Basophils % 0.7 %; Eosinophils % 1.2 %; HCT 46.2 % (40.0-50.0); HGB 15.6 g/dL (13.5-17.5); Immature Grans % 0.3 %; Lymphocytes % 27.8 %; MCH 31.9 pg (27.0-33.0); MCHC 33.8 % (32.0-36.0); MCV 95 fL (80-95); Monocytes % 6.3 %; Neutrophils % 63.7 %; Platelet Count 154 10^3/uL (130-400); RBC 4.89 10^6/uL (4.36-5.78); RDW 12.5 % (11.8-14.1); RDW-SD 43.5 fL; WBC 10.24 10^3/uL (4.4-10.8)
[2025-02-14] MEDS: Lactated Ringers 1,000 ML 1000 ML IV ×3 (04:24→05:01)
[2025-02-14 04:26] LABS: Lactate 6.2 mmol/L (<or=2.0)
--- NOTE | 2025-02-14 04:47 | NUR.NOTE ---
Nursing Note: Pt comes to the ED concerned about his blood sugar thinking it was low because he has extreme tremors and not feeling well. the pt recently got a new full arm tattoo, area red and tender. BS WNL. the pt then stated he forgot to say he had hernia surgery with mesh repair over 3 weeks ago here and was to see MD Clancy today at 1300. the pt also said he was having discomfort shortly after the surgery and was not concerned, and was going to tell [place]ston today. Pt took x3 po Tylenol and x2 Motrin aprx 1 hr prior to coming to the ED, pt has fever and chills. IV x2 established in the Left arm due to the pt having new tattoos on his entire right FA. Pt critical Lactic, POC explained to the pt and aware he will get a CT. pt medicated with x3 liters LR
[2025-02-14 04:48] LABS: ALT 51 U/L (16-63); AST 38 U/L (15-37); Albumin 4.2 g/dL (3.4-5.0); Alkaline Phosphatase 92 U/L (46-116); Anion Gap 13.4 mmol/L (3-11); BUN 20 mg/dL (7-18); Bilirubin, Total 0.8 mg/dL (0.2-1.0); CO2 26.6 mmol/L (21.0-32.0); CREATININE 1.7 mg/dL (0.70-1.30); Chloride 102 mmol/L (98-107); Estimated GFR 48.81 (mL/min/1.73m2); Glucose 114 mg/dL (74-106); Lipase 69 U/L (<78); Potassium 3.8 mmol/L (3.5-5.1); Sodium 142 mmol/L (136-145); Total Protein 8.1 g/dL (6.4-8.2)
[2025-02-14] MEDS: Omnipaque 350 MG/ML 100 ML BTL IJ (04:51)
[2025-02-14] MEDS: Normal Saline - Diluent 50 ML VIAL IJ (04:52)
[2025-02-14] MEDS: Normal Saline Flush 10 ML SYR IVP ×4 (04:52→19:40)
[2025-02-14 05:45] LABS: COVID-19 PCR Negative (Negative); Influenza A PCR Negative (Negative); Influenza B PCR Negative (Negative); RSV PCR Negative (Negative)
--- NOTE | 2025-02-14 05:49 | DI.VRAD_ITS ---
PROCEDURE INFORMATION: Exam: CT Abdomen And Pelvis With Contrast Exam date and time: 02/14/2025 4:52 AM Age: 49 years old Clinical indication: Abdominal pain; Generalized; Prior surgery; Surgery date: <1 month; Surgery type: Fever, abd pain, S/P hernia repair 3 weeks ago TECHNIQUE: Imaging protocol: Computed tomography of the abdomen and pelvis with contrast. Radiation optimization: All CT scans at this facility use at least one of these dose optimization techniques: automated exposure control; mA and/or kV adjustment per patient size (includes targeted exams where dose is matched to clinical indication); or iterative reconstruction. Contrast material: OMNIPAQUE 350; Contrast volume: 85 ml; Contrast route: INTRAVENOUS (IV); COMPARISON: No relevant prior studies available. FINDINGS: Limitations: Mild motion artifact. Liver: No focal hepatic lesion identified. Gallbladder and biliary ducts: Cholelithiasis. Pancreas: No CT evidence for acute pancreatitis. Spleen: No splenomegaly. Adrenal glands: No mass. Kidneys and ureters: No hydronephrosis or evidence for pyelonephritis. Stomach and bowel: No intestinal obstruction is evident. Retained fecal material throughout the colon. Correlate clinically for history of constipation. Few colonic diverticula. Appendix: No evidence of appendicitis. Intraperitoneal space: Trace pelvic fluid. Mild stranding of the anterior pelvic fat. Vasculature: Arterial calcifications. Lymph nodes: Nonspecific mesenteric lymph nodes. Urinary bladder: No acute findings. Reproductive: No acute findings. Bones/joints: No pertinent acute abnormality seen. Soft tissues: Peripherally enhancing collections in the inguinal canals measuring approximately 2.2 cm on the right and 1.6 cm on the left. IMPRESSION: 1. Peripherally enhancing collections in the inguinal canal bilaterally. Differential considerations include abscess, hematoma, testicular tissue, less likely neoplasm. Clinical correlation and comparison with prior studies may be helpful. 2. Additional findings as above. Dictated and Authenticated by: Keke Mayer MD. Orderin Jai Bailey MD
[2025-02-14 05:50] LABS: Source Nasopharynx
--- NOTE | 2025-02-14 06:00 | DI.CT_ITS ---
Exam(s) CT UPPER EXTREMITY RT WO EXAM: CT UPPER EXTREMITY RT WO CLINICAL HISTORY: fever/sepsis; forearm pain TECHNIQUE: Imaging Protocol: Axial computed tomography images with coronal and sagittal reformatted images were created and reviewed. CONTRAST MATERIAL: Intravenous: None (as per request) COMPARISON: No exams were available for comparison FINDINGS: Study is limited by lack of IV contrast SOFT TISSUES: There is edema in the subcutaneous fat of the volar aspect of the forearm extending jarrett n to the wrist level consistent with cellulitis pattern. There is no obvious discernible abscess, lucho lizing the limitations of a noninfused study. There is no radiopaque foreign body in the soft tissues nor gas within the soft tissues. Osseous: No fractures nor osseous lesions nor evidence of osteomyelitis in the field of view of this study. IMPRESSION: Findings are consistent with probable cellulitis in the mid-distal volar forearm. No obvious abscess, realizing the limitations of a noninfused study. If there is suspicion for venous thrombosis than Doppler ultrasound can also be performed. First read by [facility] RADIATION DOSE DELIVERED: 139.19mGy.cm Total DLP DATA REPOSITORY: All CT scans at this facility are submitted to the National Radiology Data Registry (NRDR) Dose Index Registry (DIR) with the [employer] (ACR). RADIATION OPTIMIZATION: All CT scans at this facility use at least one of these dose optimization te chniques: automated exposure control; mA and/or kV adjustment per patient size (includes targeted exa ms where dose is matched to clinical indication); or iterative reconstruction.
[2025-02-14 06:07] LABS: Lactate 1.1 mmol/L (<or=2.0)
[2025-02-14 06:15] LABS: Bilirubin Negative (Negative); Blood Negative (Negative); Clarity Clear (Clear); Glucose Negative (Negative); Ketones Negative (Negative); Leukocyte Esterase Negative (Negative); Nitrite Negative (Negative); Urobilinogen 0.2 mg/dL (Up to 0.2); pH 5.5 (5-8)
--- NOTE | 2025-02-14 06:50 | DI.VRAD_ITS ---
PROCEDURE INFORMATION: Exam: CT Right Upper Extremity Without Contrast, Forearm Exam date and time: 02/14/2025 6:11 AM Age: 49 years old Clinical indication: Lower or forearm; Right; Forearm pain, recent tattoo, fever, sepsis TECHNIQUE: Imaging protocol: Computed tomography of the right upper extremity without contrast. Exam focused on the forearm. Radiation optimization: All CT scans at this facility use at least one of these dose optimization techniques: automated exposure control; mA and/or kV adjustment per patient size (includes targeted exams where dose is matched to clinical indication); or iterative reconstruction. COMPARISON: No relevant prior studies are available for comparison. FINDINGS: Limitations: No contrast was administered, limiting evaluation for some pathologies. Bones/joints: No acute fracture or dislocation. Soft tissues: There is edema of the subcutaneous fat in the volar aspect of the forearm suggestive of cellulitis. Other findings: Please note that evaluation for some pathologies such as abscess or thrombosis is limited on noncontrast examination. IMPRESSION: Right upper extremity edema as described above. Dictated and Authenticated by: Keke Mayer MD. Orderin Jai Bailey MD
--- NOTE | 2025-02-14 06:57 | W.EDPROG ---
Date of service: 02/14/25 Time of Service: 06:57 Medical Decision Making In brief, this is a 49-year-old male patient signed out to me with severe sepsis likely of a skin and soft tissue source. The patient presented with fever and chills, had a new tattoo done a few days ago, also is recently post bilateral inguinal hernia repairs in December of this year. He had a CT of his abdomen and pelvis that showed some nonspecific enhancement in the area of his surgical sites, and is awaiting surgical evaluation. He had laboratory studies that were most notable for an elevated lactate to 6 which is normalized after 3 L of intravenous fluids. He otherwise had no evidence of leukocytosis, acidosis, though he does have an ache MICKI with a BUN of 20 and a creatinine of 1.7. COVID and flu are negative, urinalysis negative, and the patient had a CT scan of his right arm that is consistent with cellulitis without evidence of gas or free air to suggest necrotizing fasciitis. The patient is to be given 2 g of vancomycin, and following surgical evaluation will require admission for severe sepsis. Dr. Clancy with the surgery service evaluated this patient, and does not feel that the intra-abdominal changes noted on CT are the source for his severe sepsis. He is most concerned for skin and soft tissue source as well, and does question the potential for toxic shock given the tattoo is the inciting event. For this reason, I added clindamycin to the patient's regimen, and reached out to the hospitalist who is graciously accepted this patient for admission to their service. He remained hemodynamically appropriate while under my care, and was transferred to the hospitalist service without incident. Jaqueline Ghosh MD Medical Records Medical records reviewed: Yes I reviewed the patient's medical records. Lab Data Lab results reviewed: Yes I reviewed the patient's lab results. Quality:SDOH Health Related Social Needs: No Data to Display Discharge Plan Disposition Patient Disposition: Admit to [facility] Condition: Stable Discharge Details Chief Complaint: GenMedical Clinical Impression: Severe sepsis, Toxic shock syndrome (TSS), Cellulitis Primary Care Provider: Darryl Miller ED Provider: Jaqueline Ghosh Home Meds and New Rx's Prescriptions: No Action metformin 500 mg tablet 500 mg PO DAILY Mounjaro 5 mg/0.5 mL pen injector 5 mg subcut QWEEK omeprazole 40 MG capsule,delayed release(DR/EC) 1 cap PO DAILY
--- NOTE | 2025-02-14 07:30 | SCONE_ITS ---
Date of service: 02/14/25 Time of Service: 08:30 Assessment and Plan Assessment and plan (1) Toxic shock syndrome (TSS): Status: Acute Assessment and plan: 49-year-old man with high fevers, tachycardia and high lactate within 24 hours of having a large right forearm tattoo. I think this is likely toxic shock syndrome from either staph or strep in the forearm. I recommended a stat CT scan of the arm to the ED physician to rule out the possibility of a necrotizing soft tissue infection. In the meantime, his lactate has normalized in response to fluid resuscitation and his heart rate is responding as well. Clinically he does not look very concerning at all right now - thankfully. I do not think any of this has anything to do with his bilateral inguinal hernias that were repaired almost a month ago. The CT scan does show small collections of fluid, bilateral, and these are likely postop seromas or possibly small hematomas which are overall pretty small and I doubt that they are infected. Further, this would be an unusual way to present with a mesh infection. It would be unusual for both sides to be infected at the same time and I would not expect such as sudden, acute presentation. Overall recommendations: I think he should be admitted to the medical service and put on broad-spectrum IV antibiotics to cover MRSA and strep etiologies. In regards to his hernias, there is no restriction on in-hospital ambulatory status. He can return to unrestricted activity and work in the next couple of weeks. History of Present Illness Narrative: Saroj is a 49-year-old man well-known to me from bilateral inguinal hernia surgery about 4 weeks ago. It sounds like his bilateral groins have been somewhat sore since the surgery but in both his words and his 's words, each day is getting progressively better. While they have some mild discomfort with movement and activity, they do not otherwise bother him. He actually thinks sometimes his testicles being swollen/sore is more of what he thinks about related to activity. His incisions are healing nicely. He went for a 5 or 6 mile hike yesterday morning. After his hike, he said he felt very chilled and feverish and could not get warm. He started feeling chills and shaking and had a fever and a fast heart rate and so the decision was made to come to the emergency department. On Friday night, less than 24 hours before all this started, he had a large tattoo on his right forearm. This has been hurting and red and inflamed, however, he says this is usual and he has had lots of other tattoos done. In the emergency department he had a lactate of 6 and a heart rate of 140. PFSH All Active Problems (Updated 02/14/25 @ 10:21 by Delio Clancy MD) Toxic shock syndrome (TSS) (Acute) Severe sepsis (Acute) Medical History Hypertension Chronic GERD Tubular adenoma of colon (~09/2024) Type 2 diabetes mellitus Surgical History Hx of right inguinal hernia repair (~12/2024) Hx of left inguinal hernia repair (~12/2024) History of colonoscopy (~09/2024) Hx of wisdom tooth extraction 20 years ago Social History Smoking/Tobacco Use Status: Former Tobacco Use Quit Date: 11/24/13 Smoking risk assessment performed?: Yes Alcohol Intake: current Alcohol Intake frequency: holidays/special occasions only Drug use: Never Substance use type: does not use Household members: family Housing: house Education Level: high school Details: GED Do you feel safe at home: Yes Do you feel safe in your relationship?: Yes Exam Narrative Exam Narrative: Gen: He does not appear toxic. He is otherwise appearing comfortable and is interactive Neuro: Alert and oriented x3 Psych: Good mood and affect. Good insight and understanding into condition. Chest: Non-labored breathing, no wheezing, no visible shortness of breath. Heart: Regular (slightly tachycardic 104-108) Abdomen: Soft, nondistended and nontender. Incisions are healing perfectly. Bilateral groins examined and nontender Right upper extremity: Tender, swollen, edematous, there is no woodiness to it or crepitus. Results Last Vital Signs Temp 100.5 F H 02/14/25 05:25 Pulse 106 H 02/14/25 06:01 Resp 17 02/14/25 06:01 BP 140/63 02/14/25 06:01 Pulse Ox 94 02/14/25 06:01 Labs 02/14/25 04:05 02/14/25 04:05 Labs: Laboratory Results - last 24 hr 02/14/25 02/14/25 02/14/25 04:05 05:04 06:02 WBC 10.24 RBC 4.89 Hgb 15.6 Hct 46.2 MCV 95 MCH 31.9 MCHC 33.8 RDW 12.5 Plt Count 154 MPV 9.0 Immature Gran % 0.3 Neutrophils % 63.7 Lymphocytes % 27.8 Monocytes % 6.3 Eosinophils % 1.2 Basophils % 0.7 Nucleated RBC % 0.0 Absolute Neutrophils 6.53 Absolute Lymphocytes 2.85 Absolute Monocytes 0.64 Absolute Eosinophils 0.12 Absolute Basophils 0.07 VBG pH 7.32 VBG pCO2 50 VBG pO2 28 VBG HCO3 26 VBG Total CO2 23 L VBG O2 Saturation 44 VBG Base Excess -1 VBG Lactate 6.2 H* 1.1 Sodium 142 Potassium 3.8 Chloride 102 Carbon Dioxide 26.6 Anion Gap 13.4 H BUN 20 H Creatinine 1.7 H Est GFR (CKD-EPI 2020) 48.81 Glucose 114 H Calcium 10.0 Total Bilirubin 0.8 AST 38 H ALT 51 Alkaline Phosphatase 92 Total Protein 8.1 Albumin 4.2 Lipase 69 Urine Color Urine Clarity Urine pH Ur Specific [place] Urine Protein Urine Ketones Urine Blood Urine Nitrite Urine Bilirubin Urine Urobilinogen Ur Leukocyte Esterase Urine Glucose COVID-19 Source Nasopharynx SARS-CoV-2 (PCR) Negative Influenza Type A (PCR) Negative Influenza Type B (PCR) Negative RSV (PCR) Negative 02/14/25 06:10 WBC RBC Hgb Hct MCV MCH MCHC RDW Plt Count MPV Immature Gran % Neutrophils % Lymphocytes % Monocytes % Eosinophils % Basophils % Nucleated RBC % Absolute Neutrophils Absolute Lymphocytes Absolute Monocytes Absolute Eosinophils Absolute Basophils VBG pH VBG pCO2 VBG pO2 VBG HCO3 VBG Total CO2 VBG O2 Saturation VBG Base Excess VBG Lactate Sodium Potassium Chloride Carbon Dioxide Anion Gap BUN Creatinine Est GFR (CKD-EPI 2020) Glucose Calcium Total Bilirubin AST ALT Alkaline Phosphatase Total Protein Albumin Lipase Urine Color Yellow Urine Clarity Clear Urine pH 5.5 Ur Specific [place] 1.010 Urine Protein Trace Urine Ketones Negative Urine Blood Negative Urine Nitrite Negative Urine Bilirubin Negative Urine Urobilinogen 0.2 Ur Leukocyte Esterase Negative Urine Glucose Negative COVID-19 Source SARS-CoV-2 (PCR) Influenza Type A (PCR) Influenza Type B (PCR) RSV (PCR)
[2025-02-14] MEDS: VANCOMYCIN 2,000 MG in Normal Saline 500 ML 250 MG IVPB (07:55)
[2025-02-14] MEDS: CLINDAMYCIN 600 MG/50 ML BAG 100 MG IVPB (10:42)
--- NOTE | 2025-02-14 12:10 | W.PCEDHO ---
Registration Status: Primary Language: Preferred Language: ED Information & Data Chief Complaint GenMedical 02/14/25 04:01 Chief Complaint GenMedical 02/14/25 03:58 Triage Note Arrived looking pale and is 02/14/25 03:58 shaking, stats that he has hernia surgery 3 weeks ago, also has a new tattoo. Took motrin and tylenol at 1. Medical / Surgical History (Last Reviewed 02/14/25 @ 03:52 by Leo Vergara MD) Hypertension Chronic GERD Tubular adenoma of colon (~09/2024) Type 2 diabetes mellitus (Last Reviewed 02/14/25 @ 03:52 by Leo Vergara MD) Hx of right inguinal hernia repair (~12/2024) Hx of left inguinal hernia repair (~12/2024) History of colonoscopy (~09/2024) Hx of wisdom tooth extraction Most Recent Vital Signs Temperature 38.1 C H 02/14/25 05:25 Temperature Source Oral 02/14/25 05:25 Pulse 98 H 02/14/25 10:57 Pulse 95 H 02/14/25 10:47 Respiratory Rate 16 02/14/25 10:57 Respiratory Effort Normal, Non-Labored 02/14/25 04:43 Respiratory Depth Normal 02/14/25 04:43 Respiratory Pattern Normal 02/14/25 04:43 Blood Pressure 135/83 02/14/25 10:57 Blood Pressure Mean 96 02/14/25 10:47 Blood Pressure Position Sitting 02/14/25 04:05 Pulse Oximetry 96 02/14/25 10:57 Oxygen Delivery Method Room Air 02/14/25 04:05 Oxygen Flow Rate 0 02/14/25 03:58 Pain Level 3 02/14/25 04:05 Allergies shellfish derived Allergy (Severe, Verified 02/14/25 04:01) Swelling/Edema blueberry (Blueberry) Allergy (Mild, Verified 02/14/25 04:01) Hives diphenhydramine HCl (From Benadryl) Adverse Reaction (Mild, Verified 02/14/25 04:01) Swelling/Edema Precautions Isolation Standard precaution 02/14/25 04:01 Active Medications Generic Name Dose Route Start Last Admin Trade Name Freq PRN Reason Stop Dose Admin Insulin Aspart 0 units 02/14/25 12:00 02/14/25 12:05 Insulin Aspart 300 Units/3 Ml Pen SC Not Given 0800,1200,1700,2200 WHITNEY Protocol Sodium Chloride 0 ml 02/14/25 04:13 02/14/25 04:52 Normal Saline Flush 10 Ml Syr IVP 10 ml PRN PRN Administration Sodium Chloride 0 ml 02/14/25 08:30 02/14/25 11:29 Normal Saline Flush 10 Ml Syr IVP 10 ml BID WHITNEY Administration IV IV Catheter Type [Left Forearm Peripheral IV ] IV Catheter Type [Right Peripheral IV Forearm] IV Catheter Type [Left Peripheral IV Antecubital] IV Catheter Gauge [Left 18 Forearm] IV Catheter Gauge [Right 18 Forearm] IV Catheter Gauge [Left 18 Antecubital] Diet Orders Category Date Time Status Diabetes Consistent CHO [DIET] Nutrition 02/14/25 Lunch Active Diagnostics 02/14/25 02/14/25 02/14/25 Range/Units 06:10 06:02 05:04 WBC (4.4-10.8) 10^3/uL RBC (4.36-5.78) 10^6/uL Hgb (13.5-17.5) g/dL Hct (40.0-50.0) % MCV (80-95) fL MCH (27.0-33.0) pg MCHC (32.0-36.0) % RDW (11.8-14.1) % Plt Count (130-400) 10^3/uL MPV (8.0-11.0) fL Immature Gran % % Neutrophils % % Lymphocytes % % Monocytes % % Eosinophils % % Basophils % % Nucleated RBC % (0.0-0.3) % Absolute Neutrophils (1.2-6.7) 10^3/uL Absolute Lymphocytes (1.2-3.4) 10^3/uL Absolute Monocytes (0.1-0.8) 10^3/uL Absolute Eosinophils (0.0-0.7) 10^3/uL Absolute Basophils (0.0-0.2) 10^3/uL VBG pH (7.31-7.41) VBG pCO2 (41-51) mmHg VBG pO2 mmHg VBG HCO3 (23-28) mmol/L VBG Total CO2 (24-29) mmol/L VBG O2 Saturation % VBG Base Excess (-2-3) mmol/L VBG Lactate 1.1 (<or=2.0) mmol/L Sodium (136-145) mmol/L Potassium (3.5-5.1) mmol/L Chloride (98-107) mmol/L Carbon Dioxide (21.0-32.0) mmol/L Anion Gap (3-11) mmol/L BUN (7-18) mg/dL Creatinine (0.70-1.30) mg/dL Est GFR (CKD-EPI 2020) (mL/min/1.73m2) Glucose (74-106) mg/dL Calcium (8.5-10.1) mg/dL Total Bilirubin (0.2-1.0) mg/dL AST (15-37) U/L ALT (16-63) U/L Alkaline Phosphatase (46-116) U/L Total Protein (6.4-8.2) g/dL Albumin (3.4-5.0) g/dL Lipase (<78) U/L Urine Color Yellow (Yellow) Urine Clarity Clear (Clear) Urine pH 5.5 (5-8) Ur Specific [place] 1.010 (1.005-1.025) Urine Protein Trace (Neg-Trace) mg/dL Urine Ketones Negative (Negative) mg/dL Urine Blood Negative (Negative) Urine Nitrite Negative (Negative) Urine Bilirubin Negative (Negative) Urine Urobilinogen 0.2 (Up to 0.2) mg/dL Ur Leukocyte Esterase Negative (Negative) Urine Glucose Negative (Negative) mg/dL COVID-19 Source Nasopharynx SARS-CoV-2 (PCR) Negative (Negative) Influenza Type A (PCR) Negative (Negative) Influenza Type B (PCR) Negative (Negative) RSV (PCR) Negative (Negative) 02/14/25 Range/Units 04:05 WBC 10.24 (4.4-10.8) 10^3/uL RBC 4.89 (4.36-5.78) 10^6/uL Hgb 15.6 (13.5-17.5) g/dL Hct 46.2 (40.0-50.0) % MCV 95 (80-95) fL MCH 31.9 (27.0-33.0) pg MCHC 33.8 (32.0-36.0) % RDW 12.5 (11.8-14.1) % Plt Count 154 (130-400) 10^3/uL MPV 9.0 (8.0-11.0) fL Immature Gran % 0.3 % Neutrophils % 63.7 % Lymphocytes % 27.8 % Monocytes % 6.3 % Eosinophils % 1.2 % Basophils % 0.7 % Nucleated RBC % 0.0 (0.0-0.3) % Absolute Neutrophils 6.53 (1.2-6.7) 10^3/uL Absolute Lymphocytes 2.85 (1.2-3.4) 10^3/uL Absolute Monocytes 0.64 (0.1-0.8) 10^3/uL Absolute Eosinophils 0.12 (0.0-0.7) 10^3/uL Absolute Basophils 0.07 (0.0-0.2) 10^3/uL VBG pH 7.32 (7.31-7.41) VBG pCO2 50 (41-51) mmHg VBG pO2 28 mmHg VBG HCO3 26 (23-28) mmol/L VBG Total CO2 23 L (24-29) mmol/L VBG O2 Saturation 44 % VBG Base Excess -1 (-2-3) mmol/L VBG Lactate 6.2 H* (<or=2.0) mmol/L Sodium 142 (136-145) mmol/L Potassium 3.8 (3.5-5.1) mmol/L Chloride 102 (98-107) mmol/L Carbon Dioxide 26.6 (21.0-32.0) mmol/L Anion Gap 13.4 H (3-11) mmol/L BUN 20 H (7-18) mg/dL Creatinine 1.7 H (0.70-1.30) mg/dL Est GFR (CKD-EPI 2020) 48.81 (mL/min/1.73m2) Glucose 114 H (74-106) mg/dL Calcium 10.0 (8.5-10.1) mg/dL Total Bilirubin 0.8 (0.2-1.0) mg/dL AST 38 H (15-37) U/L ALT 51 (16-63) U/L Alkaline Phosphatase 92 (46-116) U/L Total Protein 8.1 (6.4-8.2) g/dL Albumin 4.2 (3.4-5.0) g/dL Lipase 69 (<78) U/L Urine Color (Yellow) Urine Clarity (Clear) Urine pH (5-8) Ur Specific [place] (1.005-1.025) Urine Protein (Neg-Trace) mg/dL Urine Ketones (Negative) mg/dL Urine Blood (Negative) Urine Nitrite (Negative) Urine Bilirubin (Negative) Urine Urobilinogen (Up to 0.2) mg/dL Ur Leukocyte Esterase (Negative) Urine Glucose (Negative) mg/dL COVID-19 Source SARS-CoV-2 (PCR) (Negative) Influenza Type A (PCR) (Negative) Influenza Type B (PCR) (Negative) RSV (PCR) (Negative) 02/14/25 04:30 Blood Culture - Pending Blood 02/14/25 04:05 Blood Culture - Pending Blood [id number] Documentation Fingerstick Glucose Start: 02/14/25 03:56 Freq: Status: Complete Protocol: Activity Type Activity Date Activity User E-sign Co-sign Detail Recorded Client Recorded Date Recorded By Document 02/14/25 03:54 BKG DAEMON(5) [id number] 02/14/25 03:56 BKG DAEMON(6) Fingerstick Glucose Start: 02/14/25 10:07 Freq: AC & HS Status: Active Protocol: Activity Type Activity Date Activity User E-sign Co-sign Detail Recorded Client Recorded Date Recorded By Document 02/14/25 11:48 BKG DAEMON(7) NVT-BG05 02/14/25 11:52 BKG DAEMON(8) Intake and Output - 24 Hour Total 02/14/25 03:48 thru 02/14/25 10:30 Intake Total 2616.667 Balance 2616.667 Weight 97.522 kg Intake: IV 2616.667 Falls Risk Assessment History of Falls No History 02/14/25 04:43 Contributing Factors No Factors 02/14/25 04:43 Ambulatory Aids Independent 02/14/25 04:43 Tubes/Lines None 02/14/25 04:43 Gait Evaluation No gait disturbance 02/14/25 04:43 Cognition No cognitive impairment 02/14/25 04:43 Fall Total Score 0 02/14/25 04:43 Level of Risk Standard/Low Risk 02/14/25 04:43 Problems (Last Reviewed 02/14/25 @ 03:52 by Leo Vergara MD) Toxic shock syndrome (TSS) (Acute) Severe sepsis (Acute) Notes 02/14/25 04:47 Nursing Notes by Saroj Pillai Nursing Note: Pt comes to the ED concerned about his blood sugar thinking it was low because he has extreme tremors and not feeling well. the pt recently got a new full arm tattoo, area red and tender. BS WNL. the pt then stated he forgot to say he had hernia surgery with mesh repair over 3 weeks ago here and was to see MD Clancy today at 1300. the pt also said he was having discomfort shortly after the surgery and was not concerned, and was going to tell [place]ston today. Pt took x3 po Tylenol and x2 Motrin aprx 1 hr prior to coming to the ED, pt has fever and chills. IV x2 established in the Left arm due to the pt having new tattoos on his entire right FA. Pt critical Lactic, POC explained to the pt and aware he will get a CT. pt medicated with x3 liters LR Initialized on 02/14/25 04:47 - END OF NOTE v v v v v v v v v Sending and/or Receiving Nurses: Please use comment section below to note any information pertinent to the patient hand-off not included above. Information / Comments: Rec'd report from Felecia. Patient is here with sepsis, s/p tattoo on Friday. Report received from: Felecia Malhotra RN
[2025-02-14] MEDS: Acetaminophen 325 MG TAB PO (16:32)
[2025-02-14] MEDS: Omeprazole 20 MG CAPCR 40 MG PO (16:33)
[2025-02-14 18:01] LABS: Abs Immature Grans 0.03 10^3/uL (0.0-0.06); Absolute Basophil Count 0.04 10^3/uL (0.0-0.2); Absolute Eosinophil Count 0.08 10^3/uL (0.0-0.7); Absolute Lymphocyte Count 1.71 10^3/uL (1.2-3.4); Absolute Monocyte Count 0.81 10^3/uL (0.1-0.8); Absolute Neutrophil Count 7.29 10^3/uL (1.2-6.7); Basophils % 0.4 %; Eosinophils % 0.8 %; HCT 42.3 % (40.0-50.0); HGB 14.5 g/dL (13.5-17.5); Immature Grans % 0.3 %; Lymphocytes % 17.2 %; MCH 32.2 pg (27.0-33.0); MCHC 34.3 % (32.0-36.0); MCV 94 fL (80-95); MPV 8.9 fL (8.0-11.0); Monocytes % 8.1 %; Neutrophils % 73.2 %; Platelet Count 102 10^3/uL (130-400); RBC 4.51 10^6/uL (4.36-5.78); RDW 12.6 % (11.8-14.1); RDW-SD 43.4 fL; WBC 9.96 10^3/uL (4.4-10.8)
--- NOTE | 2025-02-14 18:09 | HPE_ITS ---
Date of service: 02/14/25 Time of Service: 14:00 Assessment and Plan Assessment and plan (1) Cellulitis: Status: Acute Assessment and plan: New tattoo right lower arm, red and warm, swollen, painful. Appears to be consistent with new tattoo and not cellulitis, however will treat with abx after CT findings: consistent with probable cellulitis in the mid- distal volar forearm. No obvious abscess, realizing the limitations of a noninfused study. (2) Chronic GERD: Assessment and plan: Conintue home omeprazole (3) Type 2 diabetes mellitus: Assessment and plan: Hold metformin Monjoro weekly (takes on Friday's) hold SSI ACHS Diabetic diet (4) Hx of right inguinal hernia repair: Assessment and plan: 1. Findings in both inguinal canals as described above in this patient who has had recent inguinal hernia repairs. Main considerations are possibility of the these being undescended testicles or possibly testicles which have traveled cephalad since surgery. Other considerations are for abscesses within the bilateral inguinal canals or hematomas. 2. Recommend follow-up testicular ultrasound to locate position of the patient's testicles. 3. Other findings as above Surgery consulted - Scrotum US pending No leukocytosis - surgery does not think there is a post op infection (5) Hx of left inguinal hernia repair: Assessment and plan: 1. Findings in both inguinal canals as described above in this patient who has had recent inguinal hernia repairs. Main considerations are possibility of the these being undescended testicles or possibly testicles which have traveled cephalad since surgery. Other considerations are for abscesses within the bilateral inguinal canals or hematomas. 2. Recommend follow-up testicular ultrasound to locate position of the patient's testicles. 3. Other findings as above Surgery consulted - Scrotum US pending No leukocytosis - surgery does not think there is a post op infection Discussed with Dr Peralta and Dr Clancy History of Present Illness History of Present Illness Chief Complaint: Fever, right lower arm pain and redness post tattoo (placed on Sat 02/12) Narrative: This is a 49-year-old male with a history of hypertension, type 2 diabetes, and recent bilateral inguinal hernia repairs (performed approximately 3.5 weeks ago), who presents with fever, chills, generalized malaise, and shaking. The patient reports that he began feeling unwell earlier in the day, with initial symptoms of weakness, shakes, and low blood sugar (70 mg/dL). After consuming glucose tablets and maple syrup, his blood sugar improved. He is not on insulin, only metformin and tirzepatide. The patient also mentions that he had a tattoo done on his right forearm 36 hours ago, which he feels may be related to his symptoms. He denies any urinary or respiratory symptoms and has no vomiting or diarrhea, though he does experience mild abdominal pain, which he attributes to his recent hernia repairs. The patient?s vital signs in the ED showed a fever of 100.6?F, tachycardia up to 140 bpm, and blood pressure around 160/100 mmHg. He was found to have mild diffuse abdominal tenderness but no guarding. No signs of cellulitis or other obvious infections were noted on physical exam, though the skin over his tattoo showed some expected irritation. Laboratory studies revealed an elevated lactate of 6, which normalized after 3L of intravenous fluids. His kidney function showed a mild increase in creatinine to 1.7, and urinalysis and respiratory viral tests were negative. Surgery was consulted. A CT scan of his abdomen and pelvis showed peripherally enhancing collections in the inguinal canals, which were most likely seromas or hematomas and not indicative of infection. A CT scan of his right forearm was ordered to rule out deep tissue infection. Given the potential for a soft tissue infection related to the tattoo, he was started on vancomycin and clindamycin, and he was admitted to the medical floor for further testing and treatment. The patient is a full code. Review of Systems All systems reviewed & are unremarkable except as noted in HPI and below PFSH All Active Problems (Updated 02/14/25 @ 10:35 by Jaqueline Ghosh MD) Cellulitis (Acute) Toxic shock syndrome (TSS) (Acute) Severe sepsis (Acute) Medical History Hypertension Chronic GERD Tubular adenoma of colon (~09/2024) Type 2 diabetes mellitus Surgical History Hx of right inguinal hernia repair (~12/2024) Hx of left inguinal hernia repair (~12/2024) History of colonoscopy (~09/2024) Hx of wisdom tooth extraction 20 years ago Social History Smoking/Tobacco Use Status: Former Tobacco Use Quit Date: 11/24/13 Smoking risk assessment performed?: Yes Alcohol Intake: current Alcohol Intake frequency: holidays/special occasions only Drug use: Never Substance use type: does not use Household members: family Housing: house Education Level: high school Details: GED Do you feel safe at home: Yes Do you feel safe in your relationship?: Yes Meds Allergies and Home Medications Allergies Allergy/AdvReac Type Severity Reaction Status Date / Time shellfish derived Allergy Severe Swelling/Ed Verified 02/14/25 04:01 jyoti blueberry (Blueberry) Allergy Mild Hives Verified 02/14/25 04:01 diphenhydramine HCl (From AdvReac Mild Swelling/Ed Verified 02/14/25 04:01 Benadryl) jyoti Home Medications ?Medication ?Instructions ?Recorded ?Confirmed ?Type omeprazole 40 mg capsule,delayed 1 cap PO DAILY 08/03/14 02/14/25 History release metformin 500 mg tablet 500 mg PO DAILY 09/23/24 02/14/25 History tirzepatide 5 mg/0.5 mL 5 mg subcut QWEEK 09/23/24 02/14/25 History subcutaneous pen injector (Mounjaro) Exam Narrative Exam Narrative: Const: WDWN male in NAD HEENT: NC/AT. Normal facial exam. Neck: Supple. Trachea midline. Lungs: Normal respiratory effort. Lungs are clear. Cor: RRR without murmur. Good radial pulses. GI: Soft/ND. Mild diffuse tenderness, no guarding. Neuro: A+O x 4. Normal speech, mentation, gait. Cranial nerves II - XII grossly intact. No gross motor or sensory deficit. Ext: No C/C/E. Skin: Redness over the new tattoo, mostly related to irritation as expected, not consistent with cellulitis. Results Labs 02/14/25 17:50 02/14/25 17:50 Labs: Laboratory Results - last 24 hr 02/14/25 02/14/25 02/14/25 04:05 05:04 06:02 WBC 10.24 RBC 4.89 Hgb 15.6 Hct 46.2 MCV 95 MCH 31.9 MCHC 33.8 RDW 12.5 Plt Count 154 MPV 9.0 Immature Gran % 0.3 Neutrophils % 63.7 Lymphocytes % 27.8 Monocytes % 6.3 Eosinophils % 1.2 Basophils % 0.7 Nucleated RBC % 0.0 Absolute Neutrophils 6.53 Absolute Lymphocytes 2.85 Absolute Monocytes 0.64 Absolute Eosinophils 0.12 Absolute Basophils 0.07 VBG pH 7.32 VBG pCO2 50 VBG pO2 28 VBG HCO3 26 VBG Total CO2 23 L VBG O2 Saturation 44 VBG Base Excess -1 VBG Lactate 6.2 H* 1.1 Sodium 142 Potassium 3.8 Chloride 102 Carbon Dioxide 26.6 Anion Gap 13.4 H BUN 20 H Creatinine 1.7 H Est GFR (CKD-EPI 2020) 48.81 Glucose 114 H Calcium 10.0 Total Bilirubin 0.8 AST 38 H ALT 51 Alkaline Phosphatase 92 Total Protein 8.1 Albumin 4.2 Lipase 69 Urine Color Urine Clarity Urine pH Ur Specific [place] Urine Protein Urine Ketones Urine Blood Urine Nitrite Urine Bilirubin Urine Urobilinogen Ur Leukocyte Esterase Urine Glucose COVID-19 Source Nasopharynx SARS-CoV-2 (PCR) Negative Influenza Type A (PCR) Negative Influenza Type B (PCR) Negative RSV (PCR) Negative 02/14/25 02/14/25 06:10 17:50 WBC 9.96 RBC 4.51 Hgb 14.5 Hct 42.3 MCV 94 MCH 32.2 MCHC 34.3 RDW 12.6 Plt Count 102 L MPV 8.9 Immature Gran % 0.3 Neutrophils % 73.2 Lymphocytes % 17.2 Monocytes % 8.1 Eosinophils % 0.8 Basophils % 0.4 Nucleated RBC % 0.0 Absolute Neutrophils 7.29 H Absolute Lymphocytes 1.71 Absolute Monocytes 0.81 H Absolute Eosinophils 0.08 Absolute Basophils 0.04 VBG pH VBG pCO2 VBG pO2 VBG HCO3 VBG Total CO2 VBG O2 Saturation VBG Base Excess VBG Lactate 1.0 Sodium Potassium Chloride Carbon Dioxide Anion Gap BUN Creatinine Est GFR (CKD-EPI 2020) Glucose Calcium Total Bilirubin AST ALT Alkaline Phosphatase Total Protein Albumin Lipase Urine Color Yellow Urine Clarity Clear Urine pH 5.5 Ur Specific [place] 1.010 Urine Protein Trace Urine Ketones Negative Urine Blood Negative Urine Nitrite Negative Urine Bilirubin Negative Urine Urobilinogen 0.2 Ur Leukocyte Esterase Negative Urine Glucose Negative COVID-19 Source SARS-CoV-2 (PCR) Influenza Type A (PCR) Influenza Type B (PCR) RSV (PCR) Last Vital Signs Temp 37.4 C 02/14/25 12:11 Pulse 93 H 02/14/25 12:11 Resp 18 02/14/25 12:11 BP 136/72 02/14/25 12:11 Pulse Ox 97 02/14/25 12:11 Time Spent Time spent with Patient: 40-54 minutes Time was spent: preparing to see the patient(eg.review tests), obtaining and/or reviewing separately otained hiistory, ordering medications,tests, procedures, referring, communicating with other health customer care voice consultant, indepentently interpreting results, counseling the patient and care coordination
[2025-02-14 18:17] LABS: Anion Gap 9.2 mmol/L (3-11); BUN 16 mg/dL (7-18); CO2 25.8 mmol/L (21.0-32.0); CREATININE 1.1 mg/dL (0.70-1.30); Calcium 9.4 mg/dL (8.5-10.1); Chloride 107 mmol/L (98-107); Estimated GFR 82.29 (mL/min/1.73m2); Glucose 122 mg/dL (74-106); Potassium 3.6 mmol/L (3.5-5.1); Sodium 142 mmol/L (136-145)
[2025-02-14] MEDS: HYDROmorphone 2 MG/ML SYR 1 MG IVP (18:34)
[2025-02-14] MEDS: VANCOMYCIN/WATER (PEG) 750 MG/150 ML BAG 150 MG IVPB (19:39)
[2025-02-14] MEDS: Normal Saline 1,000 ML 125 ML IV (21:01)
[2025-02-14] MEDS: Bacitracin 1 PACKET TP (21:02)
[2025-02-14] MEDS: PIPERACILLIN/TAZO 4.5 GM in Normal Saline 100 ML IVPB (21:02)
[2025-02-15] MEDS: HYDROmorphone 2 MG/ML SYR 1 MG IVP (01:25)
[2025-02-15] MEDS: Acetaminophen 325 MG TAB PO ×3 (01:25→18:35)
[2025-02-15 02:54] VITALS: BP 116/62; PULSE 83; RESP 20; TEMP 36.3; O2SAT 96
[2025-02-15] MEDS: Normal Saline 1,000 ML 125 ML IV (04:04)
[2025-02-15] MEDS: Bacitracin 1 PACKET TP ×5 (04:04→21:45)
[2025-02-15] MEDS: PIPERACILLIN/TAZO 4.5 GM in Normal Saline 100 ML IVPB ×3 (04:04→21:45)
[2025-02-15 06:50] LABS: Abs Immature Grans 0.02 10^3/uL (0.0-0.06); Absolute Basophil Count 0.04 10^3/uL (0.0-0.2); Absolute Eosinophil Count 0.18 10^3/uL (0.0-0.7); Absolute Lymphocyte Count 1.62 10^3/uL (1.2-3.4); Absolute Monocyte Count 0.67 10^3/uL (0.1-0.8); Absolute Neutrophil Count 4.26 10^3/uL (1.2-6.7); Basophils % 0.6 %; Eosinophils % 2.7 %; HCT 41.3 % (40.0-50.0); HGB 13.7 g/dL (13.5-17.5); Immature Grans % 0.3 %; Lymphocytes % 23.9 %; MCH 31.5 pg (27.0-33.0); MCHC 33.2 % (32.0-36.0); MCV 95 fL (80-95); Monocytes % 9.9 %; Neutrophils % 62.6 %; RBC 4.35 10^6/uL (4.36-5.78); RDW 12.7 % (11.8-14.1); RDW-SD 44.3 fL; WBC 6.79 10^3/uL (4.4-10.8)
[2025-02-15 07:04] LABS: Anion Gap 7.9 mmol/L (3-11); BUN 16 mg/dL (7-18); C-Reactive Protein 2.76 mg/dL (<or=0.5); CO2 27.1 mmol/L (21.0-32.0); CREATININE 1.1 mg/dL (0.70-1.30); Calcium 9.4 mg/dL (8.5-10.1); Chloride 108 mmol/L (98-107); Estimated GFR 82.29 (mL/min/1.73m2); Glucose 84 mg/dL (74-106); Magnesium 1.6 mg/dL; Potassium 3.9 mmol/L (3.5-5.1); Sodium 143 mmol/L (136-145)
[2025-02-15 07:14] LABS: Vancomycin, Random 6.5 ug/mL
[2025-02-15 07:28] LABS: Platelet Count 99 10^3/uL (130-400)
--- NOTE | 2025-02-15 07:36 | W.PM.PROGNOT ---
Date of Service Date of service: 02/15/25 Time of Service: 07:36 Assessment and Plan Assessment and plan (1) Toxic shock syndrome (TSS): Status: Acute Assessment and plan: 49-year-old man who was acutely and severely sick from an unknown cause. I do think toxic shock syndrome is the most likely explanation. He actually has a thrombocytopenia that continues which can be seen in TSS. It is also not unusual for there to be no elevated leukocytosis in TSS. In any event, I defer to the medical team from antibiotic management and that seems to be doing a good job. In regards to his groins, the bilateral seromas are completely expected postop and are not contributing to his presentation. They are expected to resolve completely with time and they can be considered a usual postop finding at this point only 4 weeks out from surgery. Surgery signing off at this time. Subjective Subjective Interval history since last seen: No overnight events. Patient endorses that his testicles are present bilateral. No groin pain. His arm is slightly improved. He feels a lot better overall. Exam Narrative Exam Narrative: Gen: Non-toxic, comfortable and interactive Neuro: Alert and oriented x3 Psych: Good mood and affect. Good insight and understanding into condition. Chest: Non-labored breathing, no wheezing, no visible shortness of breath. Heart: Regular Right upper extremity: Still swollen and edematous with some redness -no crepitus, not woody Objective Last Vital Signs Temp 97.3 F L 02/15/25 02:54 Pulse 83 02/15/25 02:54 Resp 20 02/15/25 02:54 BP 116/62 02/15/25 02:54 Pulse Ox 96 02/15/25 02:54 Laboratory Results - last 24 hr 02/14/25 02/15/25 17:50 05:53 WBC 9.96 6.79 RBC 4.51 4.35 L Hgb 14.5 13.7 Hct 42.3 41.3 MCV 94 95 MCH 32.2 31.5 MCHC 34.3 33.2 RDW 12.6 12.7 Plt Count 102 L 99 L MPV 8.9 9.0 Immature Gran % 0.3 0.3 Neutrophils % 73.2 62.6 Lymphocytes % 17.2 23.9 Monocytes % 8.1 9.9 Eosinophils % 0.8 2.7 Basophils % 0.4 0.6 Nucleated RBC % 0.0 0.0 Absolute Neutrophils 7.29 H 4.26 Absolute Lymphocytes 1.71 1.62 Absolute Monocytes 0.81 H 0.67 Absolute Eosinophils 0.08 0.18 Absolute Basophils 0.04 0.04 VBG Lactate 1.0 Sodium 142 143 Potassium 3.6 3.9 Chloride 107 108 H Carbon Dioxide 25.8 27.1 Anion Gap 9.2 7.9 BUN 16 16 Creatinine 1.1 1.1 Est GFR (CKD-EPI 2020) 82.29 82.29 Glucose 122 H 84 Calcium 9.4 9.4 Magnesium 1.6 C-Reactive Protein 2.76 H Random Vancomycin 6.5 Time Spent with Patient Time Spent with Patient: <25 minutes Time was spent: preparing to see the patient(eg.review tests), obtaining and/or reviewing separately otained hiistory, referring, communicating with other health career placement services counselor, indepentently interpreting results, counseling the patient and care coordination
[2025-02-15 07:51] VITALS: BP 130/84; PULSE 70; RESP 16; TEMP 36.7; O2SAT 99
[2025-02-15] MEDS: VANCOMYCIN/WATER (PEG) 1.75 GM/350 ML BAG IVPB ×2 (08:24→19:47)
[2025-02-15] MEDS: Normal Saline Flush 10 ML SYR IVP ×4 (08:26→19:47)
--- NOTE | 2025-02-15 09:31 | PDOC.CMIN ---
Date of service: 02/15/25 Time of Service: 09:32 Care Management Initial Assmt Initial Assessment Reason for Hospitalization: cellulitis/toxic shock syndrome Functional Status/Living Situation Patient Presentation: Epi presented to the ED yesterday with c/o sweats and shaking chills. He is s/p bilateral inguinal hernia repairs about 3.5 weeks ago, and he got a new tattoo about 36h prior to presentation. CT of the tattoo on the right forearm may represent cellulitis. He was started on vanco and clinda for potential of sot tissue infection on the arm. CT of abdomen was not indicative of infection. Epi was sitting up in the bed when met with him today. His , Estefany, was visiting. They were both very pleasant, and agreeable to conversation. Epi's right forearm was noted to be very reddened, he stated that it feels like he has a third degree burn. Epi and his have been through a lot of medical situations over the last year, but feel that they have come out on the better side, and are healthier overall due to lifestyle changes made. Town of Residence: [place] Resides with: Spouse (Estefany and one daughter.) Significant Other/Family: Local (2 daughters total, one is local and lives on her own, the 18yo lives at home) Natural Supports: family, friends Employment Status: Employed (works for [employer] - is currently out on disability due to hernia repair surgery) Instrumental Activities of Daily Living (ADLs): Independent Activities/Hobbies/SocialSupport: Is an avid dominique Medications Medication Management: No Issues/Barriers identified Advance Directives Advance Directives: Do you have an Advance Directive: N 07/08/14 20:03 AD On File at [facility]: N 07/08/14 20:03 Date Asked 02/14/25 02/14/25 07:20 AD Date Reviewed COLST On File at [facility] COLST Date Scanned Code Status Resuscitation Status Full Code Insurance Coverage/Financial Issues Insurance: /[facility] Care Team Visit Care Team Role Provider Type Ting Simmons NP MD [facility] STAFF PHYSICIAN Darryl Miller Primary Care Provider NON-[facility] STAFF PHYSICIAN Elissa Lester RDN, [facility] Other Providers COMPOUND WORKER Vasiliy Yung RDN Other Providers COMPOUND WORKER Jaqueline Ghosh MD Emergency Provider MD [facility] STAFF PHYSICIAN Leo Peralta MD Admit Provider [facility] STAFF PHYSICIAN Attending Provider Discharge Potential Discharge Needs: PCP F/U Appt Anticipated Barriers to Discharge: None Identified Patient/Family Education Needs: Review discharge instructions, discuss Ask Me Three Transportation: Private vehicle Plan: Anticipate that Epi will be discharged home with no new services. He will f/u with his PCP and continue per his plan of care. Epi will transport home in a private vehicle with his . CM will continue to follow. Social Determinants of Health Screening Social Determinants of Health last assessed: 02/15/25 Will the Patient Participate in the Screening?: Yes Do you worry about having a steady place to live?: no Problems where you live: no known problems In the past 12 months, have you had to go without electric, gas, oil or water in your home?: no Have you or anyone in your house had to go without enough food to eat?: no Has lack of transportation kept you from medical appointments or from doing things needed for daily living?: no Has anyone in your life made you feel unsafe or unsupported?: no How hard is it for you to pay for the very basics like food, housing, medical care, and heating? Would you say it is:: Not hard at all Do you want help finding or keeping work or a job?: I do not need or want help If for any reason you need help with day-to-day activities such as bathing, preparing meals, shopping, managing finances, etc., do you get the help you need?: I don?t need any help How often do you feel lonely or isolated from those around you?: Never Do you speak a language other than Croatian at home?: No Does the patient want assistance with any of the above?: No PFSH All Active Problems (Updated 02/14/25 @ 10:35 by Jaqueline Ghosh MD) Cellulitis (Acute) Toxic shock syndrome (TSS) (Acute) Severe sepsis (Acute) Medical History Hypertension Chronic GERD Tubular adenoma of colon (~09/2024) Type 2 diabetes mellitus Surgical History Hx of right inguinal hernia repair (~12/2024) Hx of left inguinal hernia repair (~12/2024) History of colonoscopy (~09/2024) Hx of wisdom tooth extraction 20 years ago Social History Smoking/Tobacco Use Status: Former Tobacco Use Quit Date: 11/24/13 Smoking risk assessment performed?: Yes Alcohol Intake: current Alcohol Intake frequency: holidays/special occasions only Drug use: Never Substance use type: does not use Household members: family Housing: house Education Level: high school Details: GED Do you feel safe at home: Yes Do you feel safe in your relationship?: Yes Readmission Within the Past 30 Days Yes or No: No
[2025-02-15] MEDS: Omeprazole 20 MG CAPCR 40 MG PO (10:24)
[2025-02-15 11:28] VITALS: BP 128/86; PULSE 81; RESP 18; TEMP 36.6; O2SAT 98
--- NOTE | 2025-02-15 12:12 | W.INDIABCONS ---
Date of service: 02/14/25 Time of Service: 14:00 Diabetes Inpatient Consult Reason for Visit: received consult request regarding diabetes education DESCRIPTION/ASSESSMENT: 49yo male admitted for treatment of cellulitis, sepsis related to toxic shock syndrome. Pt with hx of DMII with last recorded A1c of 5.3 last month. Pt states his A1c was >13 last june and made some radical changes with his eating - avoids carbs and has lost over 80lbs per his account. Pt requesting double portions of meat protein on meal trays and milk with all meals. We discussed carbs briefly and the nutritional and metabolic benefit of getting intact grains, non-starchy veggies, healthy starchy veggies, and whole fruit. It may be his improvement are related to significant reductions in refined carbs and added sugars since trying to go no-carb. Glucose numbers have been good this admission. INTERVENTION: pt took my card to contact for outpatient visit to discuss individual nutrition goals and menu planning PLAN: will monitor labs/glucose, po intake and work with kitchen and patieint to provide balanced meals. Time Spent in Nutritional Counseling and Treatment: 10 minutes
[2025-02-15] MEDS: Normal Saline 100 ML 25 ML (14:32)
[2025-02-15 15:12] VITALS: BP 140/76; PULSE 76; RESP 18; TEMP 36.7; O2SAT 96
[2025-02-15 20:19] VITALS: BP 127/79; PULSE 76; RESP 18; TEMP 36.4; O2SAT 95
[2025-02-15] MEDS: Lactobacillus Acidophilus CAP 1 CAP PO (22:13)
[2025-02-15 23:23] VITALS: BP 124/73; PULSE 68; RESP 16; TEMP 36.6; O2SAT 97
[2025-02-16] MEDS: Normal Saline 1,000 ML 125 ML IV (03:10)
[2025-02-16 03:18] VITALS: BP 102/68; PULSE 61; RESP 16; TEMP 36.3; O2SAT 96
[2025-02-16] MEDS: Bacitracin 1 PACKET TP ×2 (03:29→03:35)
[2025-02-16] MEDS: Acetaminophen 325 MG TAB PO (03:29)
[2025-02-16] MEDS: PIPERACILLIN/TAZO 4.5 GM in Normal Saline 100 ML IVPB ×2 (05:20→12:49)
[2025-02-16 07:41] VITALS: BP 141/96; PULSE 66; RESP 16; TEMP 36.3; O2SAT 98
[2025-02-16] MEDS: Omeprazole 20 MG CAPCR 40 MG PO (08:00)
[2025-02-16] MEDS: VANCOMYCIN/WATER (PEG) 1.75 GM/350 ML BAG IVPB (09:38)
[2025-02-16 10:15] LABS: Abs Immature Grans 0.01 10^3/uL (0.0-0.06); Absolute Basophil Count 0.03 10^3/uL (0.0-0.2); Absolute Eosinophil Count 0.21 10^3/uL (0.0-0.7); Absolute Lymphocyte Count 1.28 10^3/uL (1.2-3.4); Absolute Monocyte Count 0.43 10^3/uL (0.1-0.8); Absolute Neutrophil Count 2.19 10^3/uL (1.2-6.7); Basophils % 0.7 %; Eosinophils % 5.1 %; HCT 41.3 % (40.0-50.0); HGB 13.9 g/dL (13.5-17.5); Immature Grans % 0.2 %; Lymphocytes % 30.8 %; MCH 31.7 pg (27.0-33.0); MCHC 33.7 % (32.0-36.0); MCV 94 fL (80-95); MPV 8.9 fL (8.0-11.0); Monocytes % 10.4 %; Neutrophils % 52.8 %; RBC 4.39 10^6/uL (4.36-5.78); RDW 12.5 % (11.8-14.1); RDW-SD 43.1 fL; WBC 4.15 10^3/uL (4.4-10.8)
[2025-02-16 10:26] LABS: Diff Comment PLT Morph Reviewed; Platelet Count 97 10^3/uL (130-400); RBC Morphology Normal
[2025-02-16 10:33] LABS: ALT 34 U/L (16-63); AST 25 U/L (15-37); Albumin 3.3 g/dL (3.4-5.0); Alkaline Phosphatase 63 U/L (46-116); Anion Gap 7.8 mmol/L (3-11); BUN 15 mg/dL (7-18); Bilirubin, Total 0.6 mg/dL (0.2-1.0); C-Reactive Protein 1.32 mg/dL (<or=0.5); CO2 27.2 mmol/L (21.0-32.0); CREATININE 1.1 mg/dL (0.70-1.30); Calcium 9.3 mg/dL (8.5-10.1); Chloride 106 mmol/L (98-107); Estimated GFR 82.29 (mL/min/1.73m2); Glucose 117 mg/dL (74-106); Magnesium 1.7 mg/dL; Potassium 3.9 mmol/L (3.5-5.1); Sodium 141 mmol/L (136-145); Total Protein 6.8 g/dL (6.4-8.2)
[2025-02-16] MEDS: Ibuprofen 800 MG TAB PO (10:39)
[2025-02-16 11:23] VITALS: BP 127/88; PULSE 70; RESP 16; TEMP 36.8; O2SAT 97
--- NOTE | 2025-02-16 11:59 | DSE_ITS ---
Date of service: 02/16/25 Time of Service: 11:59 DS: Diagnosis Discharge Diagnosis (1) Cellulitis of right forearm: Status: Acute Discharge Plan Disposition Patient Disposition: Home Condition: Good Discharge Details Reason For Visit: Cellulitis Admit Date/Time: 02/14/25 10:04 Admit Provider: Leo Peralta Attending Provider: Leo Peralta [facility] [place] [facility] Hospital Course: Presenting Problem: This is a 49-year-old male with a medical history significant for hypertension, type 2 diabetes, and recent bilateral inguinal hernia repairs (approximately 3.5 weeks ago). He presented with fever, chills, generalized malaise, and shaking. The patient initially experienced weakness, shakes, and low blood sugar (70 mg/dL), which improved after consuming glucose tablets and maple syrup. He denied any respiratory or urinary symptoms but complained of mild abdominal pain, which he attributed to his recent hernia repairs. He had a recent tattoo on his right forearm 36 hours before the onset of symptoms and suspected it may be related to his current condition. Clinical Course and Investigations: * Vital Signs: Upon presentation to the emergency department, the patient was febrile with a temperature of 100.6?F, tachycardic with a heart rate of 140 bpm, and had an elevated blood pressure of 160/100 mmHg. * Physical Examination: He exhibited mild diffuse abdominal tenderness without guarding. No cellulitis or overt signs of infection were noted, although the skin over his tattoo appeared mildly irritated. * Laboratory Results: * Elevated lactate of 6, which normalized following the administration of 3L of intravenous fluids. * Mild increase in creatinine to 1.7. * Urinalysis and respiratory viral tests were negative. * Imaging: * A CT scan of the abdomen and pelvis revealed peripherally enhancing collections in the inguinal canals, most likely seromas or hematomas, not indicative of infection. * A CT scan of the right forearm was performed to rule out a deep tissue infection related to the recent tattoo. * Surgical Consultation: Surgery was consulted due to concerns about the recent hernia repairs and evaluated the patient. The bilateral seromas are expected postoperative findings, not contributing to his current presentation. These are typical at 4 weeks post-surgery and are expected to resolve completely with time. They can be considered a usual postoperative occurrence at this stage. Management: Given the concern for a soft tissue infection related to the tattoo, the patient was started on vancomycin and clindamycin. He was admitted to the medical floor for further observation, testing, and treatment. Diagnosis: * Soft tissue infection, likely related to recent tattoo. * Recent bilateral inguinal hernia repairs with mild abdominal pain, not indicative of infection. * Dehydration with transient lactate elevation, improved with IV fluids. * Hypertension and type 2 diabetes, managed on metformin and tirzepatide. Plan on Discharge: * Medications: Start cephalexin 500 mg four times a day. * Follow-up: Follow-up with primary care physician in 1-2 weeks for continued management of diabetes and hypertension. * Wound Care: Continue monitoring and care for the tattoo area. Any worsening of redness, swelling, or drainage should prompt an immediate re-evaluation. * Activity: Resume normal activities as tolerated, avoiding strenuous activities or manipulation of the tattoo site until it has healed. * Diet: Diabetic diet, continue glucose monitoring at home as per usual protocol. Discharge Instructions: * Return to the hospital or seek urgent care if he develops worsening redness, swelling, or drainage from the tattoo area, or if he experiences signs of systemic infection (e.g., fever, chills, or increased abdominal pain). * Cephalexin 500 mg four times a day for 5 days * Monitor blood glucose levels closely and adjust diet or medications as needed. * Ensure adequate hydration. Disposition: The patient is a full code and was discharged to home in stable condition. Home Meds and New Rx's Prescriptions: New cephalexin 500 mg capsule 500 mg PO QID Qty: 20 0RF Continued metformin 500 mg tablet 500 mg PO DAILY Mounjaro 5 mg/0.5 mL pen injector 5 mg subcut QWEEK omeprazole 40 MG capsule,delayed release(DR/EC) 1 cap PO DAILY Discharge Instructions Instructions: Cephalexin, Cellulitis (skin infection) in adults - Discharge instructions Additional Instructions: * Cephalexin * Dosage: Take as prescribed 500 mg every 6 hours for 5 days * Purpose: Antibiotic to treat the bacterial infection. * Instructions: Take the full course as prescribed, even if you start feeling better. * Possible Side Effects: Nausea, diarrhea, upset stomach. Contact your healthcare provider if you experience severe diarrhea, rash, or allergic reactions. * Probiotics * Dosage: Take as prescribed 1 capsule daily (over the counter). * Purpose: To help maintain healthy gut bacteria, which may be affected by antibiotics like cephalexin. * Instructions: Take with food for better absorption. You can take this along with the antibiotic or wait a few hours between doses. * Ibuprofen * Dosage: Take 600 mg every 6 hours as needed for pain and or swelling. * Purpose: Pain relief and to reduce inflammation. * Instructions: Take with food or milk to prevent stomach upset. * Possible Side Effects: Stomach irritation, dizziness, or headache. * Acetaminophen * Dosage: Take 1000 mg every 6 hours as needed for pain. * Purpose: Pain relief and to reduce fever. * Instructions: Do not exceed 4000 mg per day to avoid liver damage. * Possible Side Effects: Rare, but may include liver issues if taken in excess. Return to the emergency department if: * Increased redness, swelling, or warmth around the infected area, especially if it rapidly spreads. * Fever or chills, which may indicate the infection is spreading or becoming more severe. * Severe pain or tenderness in the affected area that worsens over time. * Pus or fluid drainage from the infection site, especially if it has become very thick or foul-smelling. * Difficulty breathing or other signs of a systemic infection, such as confusion or dizziness. * Red streaks running from the affected area, which could suggest the infection is spreading along the lymphatic system (lymphangitis). * Swollen lymph nodes near the affected area, indicating the infection is spreading. * Worsening symptoms despite treatment, or if new symptoms appear.If you feel unsure about your symptoms or are worried about the severity of the infection, it's always safer to seek immediate medical help. Follow up with Dr Miller next week. Stand Alone Forms: Nursing Discharge Form Referrals: Darryl Miller [ NON-[facility] STAFF PHYSICIAN] - (1 week post hospitalization for cellulitis ) Jimenez Miller DO [Primary Care Provider] - 02/23/25 10:20 am (1 week post hospitalization for cellulitis) Activity:: Activity as Tolerated Equipment/Supplies:: No Equipment Needed Diet:: As Tolerated Discharge Orders Discharge Orders: Discharge Order (Routine); Ordered 02/16/25 Ordered By: Ting Simmons Discharge Data Discharge Date/Time-TO BE ENTERED AT DEPARTURE: 02/16/25 13:50 DS: Summary Time Spent with Patient providing and/or coordinating discharge services: Greater than 30 minutes Status at Discharge Functional status at discharge: independent ambulation Overall status at discharge: patient is back to baseline Mental Status: mental status grossly normal Speech and Movement: speech and movement normal Mood: congruent mood Affect: normal affect Quality:SDOH Health Related Social Needs: Health related social needs housing instability, house d, with risk of homelessness (Z59.811) Exam Narrative Exam Narrative: Const: WDWN male in NAD HEENT: NC/AT. Normal facial exam. Neck: Supple. Trachea midline. Lungs: Normal respiratory effort. Lungs are clear. Cor: RRR without murmur. Good radial pulses. GI: Soft/ND. Mild diffuse tenderness, no guarding. Neuro: A+O x 4. Normal speech, mentation, gait. Cranial nerves II - XII grossly intact. No gross motor or sensory deficit. Ext: No C/C/E. Skin: Redness over the new tattoo has dissipated. Psych Mental Status: mental status grossly normal Speech and Movement: speech and movement normal Mood: congruent mood Affect: normal affect DS: Data Vitals/I&O Vitals and I&O: Vital Signs Temperature 36.8 C 02/16/25 11:23 Temperature Source Temporal Artery Scan 02/16/25 11:23 Pulse 70 02/16/25 11:23 Pulse 95 H 02/14/25 10:47 Respiratory Rate 16 02/16/25 11:23 Respiratory Effort Normal, Non-Labored 02/14/25 12:11 Respiratory Depth Normal 02/14/25 12:11 Respiratory Pattern Normal 02/14/25 12:11 Blood Pressure 127/88 02/16/25 11:23 Blood Pressure Mean 96 02/14/25 10:47 Blood Pressure Position Sitting 02/14/25 04:05 Pulse Oximetry 97 02/16/25 11:23 Oxygen Delivery Method Room Air 02/16/25 11:23 Oxygen Flow Rate 0 02/16/25 11:23 Pain Level 2 02/16/25 11:23 Comment pain of 2 when nothing is touching but pain is high when anything touches 02/16/25 07:41 Intake & Output 02/15/25 02/15/25 02/16/25 11:59 23:59 11:59 Intake Total 1831.25 / 3531.25 1700 / 3531.25 1150 / 1150 Balance 1831.25 / 3531.25 1700 / 3531.25 1150 / 1150 Intake: IV 1431.25 / 2531.25 1100 / 2531.25 550 / 550 Oral 400 / 1000 600 / 1000 600 / 600 Other: Urine Color Yellow Urine Appearance Clear Urine Odor Normal Comment pT stated that he voided voided in toilet voided in toilet Data Completed and Pending Labs on day of discharge: Labs from last 24 hours 02/16/25 09:55 WBC 4.15 L RBC 4.39 Hgb 13.9 Hct 41.3 MCV 94 MCH 31.7 MCHC 33.7 RDW 12.5 Plt Count 97 L MPV 8.9 Immature Gran % 0.2 Neutrophils % 52.8 Lymphocytes % 30.8 Monocytes % 10.4 Eosinophils % 5.1 Basophils % 0.7 Nucleated RBC % 0.0 Absolute Neutrophils 2.19 Absolute Lymphocytes 1.28 Absolute Monocytes 0.43 Absolute Eosinophils 0.21 Absolute Basophils 0.03 RBC Morphology Normal Sodium 141 Potassium 3.9 Chloride 106 Carbon Dioxide 27.2 Anion Gap 7.8 BUN 15 Creatinine 1.1 Est GFR (CKD-EPI 2020) 82.29 Glucose 117 H Calcium 9.3 Magnesium 1.7 Total Bilirubin 0.6 AST 25 ALT 34 Alkaline Phosphatase 63 C-Reactive Protein 1.32 H Total Protein 6.8 Albumin 3.3 L Preliminary micro results at discharge 02/14/25 04:30 Blood Culture - Preliminary Blood NO GROWTH 48 HOURS 02/14/25 04:05 Blood Culture - Preliminary Blood NO GROWTH 48 HOURS PFSH All Active Problems (Updated 02/17/25 @ 00:03 by GERRY ELIAS) Cellulitis of right forearm (Acute) Cellulitis (Acute) Medical History Hypertension Chronic GERD Tubular adenoma of colon (~09/2024) Type 2 diabetes mellitus Surgical History Hx of right inguinal hernia repair (~12/2024) Hx of left inguinal hernia repair (~12/2024) History of colonoscopy (~09/2024) Hx of wisdom tooth extraction 20 years ago Social History Smoking/Tobacco Use Status: Former Tobacco Use Quit Date: 11/24/13 Smoking risk assessment performed?: Yes Alcohol Intake: current Alcohol Intake frequency: holidays/special occasions only Drug use: Never Substance use type: does not use Household members: family Housing: house Education Level: high school Details: GED Do you feel safe at home: Yes Do you feel safe in your relationship?: Yes Time Spent with Patient Time Spent with Patient: 45-69 minutes Time was spent: preparing to see the patient(eg.review tests), ordering medications,tests, procedures, referring, communicating with other health tree care foreman, indepentently interpreting results, counseling the patient and care coordination
--- NOTE | 2025-02-16 12:57 | CMDISCH_ITS ---
Date of service: 02/16/25 Time of Service: 12:57 LACE Index Scoring Tool Questions: Length of Stay (in days): 2 Was the patient admitted via the E.D.?: Yes Comorbidities: Diabetes w/o Complication E.D. Visits: 2 Answers: Total Score: 8 Risk of Readmission: Low Risk Care Management Discharge Plan Reason for Hospitalization: cellulitis of right forearm Discharge Plan: Epi is discharged home today with no new services. He will have a new rx for antibiotics, and will f/u with his PCP on 02/23. Epi will transport home with his and continue per his plan of care. Patient/Family Education Needs: Review of discharge instructions, activity, limitations and discuss ask me three. SDOH Health Related Social Needs: Health related social needs housing instability, house d, with risk of homelessness (Z59.811)
--- NOTE | 2025-02-16 13:50 | CHAPLAIN ---
Epi was resting in bed when I visited. His , Estefany, was with him. He expects to bed discharged later today. I introduced myself and explained my role. They thanked me for stopping in.
== END 2025-02-16 13:50 | disposition home or self-care (01) | DRG 869 ==
LOC: ER 10:35 → MS 11:08
PROVIDERS: Emergency Medicine; Admitting Provider Hospitalist; Emergency Provider Emergency Medicine; PCP Specialist/Technologist Athletic Trainer; Responsible Provider Nurse Practitioner Family; Visit Provider Hospitalist
DX: A48.3 Toxic shock syndrome (principal); L03.113 Cellulitis of right upper limb; E11.649 Type 2 diabetes mellitus with hypoglycemia without coma; I10 Essential (primary) hypertension; K21.9 Gastro-esophageal reflux disease without esophagitis; Z79.84 Long term (current) use of oral hypoglycemic drugs; D69.6 Thrombocytopenia, unspecified; Z98.890 Other specified postprocedural states; Z79.85 Long-term (current) use of injectable non-insulin antidiabetic drugs; L81.8 Other specified disorders of pigmentation
CPT/HCPCS: 00123; 36415; 80048; 80053; 82805; 83690; 87040; 87637; 96361; 96365; 96366; 99291; 73200; 74177; 76870; 80202; 81003; 83605; 83735; 85025; 86140; 99222; 99239; J0737; J1171; J1815; J2543; J3370; J3372; J3490

== ENCOUNTER 2025-05-16 12:26 | Outpatient (CLI) | payer BC, SELFPAY ==
[2025-05-16 16:18] LABS: Hemoglobin A1C 5.3 % (<5.7)
== END 2025-05-16 12:27 | disposition home or self-care (01) ==
PROVIDERS: PCP Specialist/Technologist Athletic Trainer; Visit Provider Specialist/Technologist Athletic Trainer
DX: E11.9 Type 2 diabetes mellitus without complications (principal)
CPT/HCPCS: 36415; 83036

== ENCOUNTER 2025-11-11 13:21 | Outpatient (CLI) | payer BC, SELFPAY ==
[2025-11-11 12:57] LABS: Abs Immature Grans 0.01 10^3/uL (0.0-0.06); HCT 44.3 % (40.0-50.0); HGB 15.3 g/dL (13.5-17.5); Immature Grans % 0.2 %; MCH 30.9 pg (27.0-33.0); MCHC 34.5 % (32.0-36.0); MCV 90 fL (80-95); MPV 8.7 fL (8.0-11.0); Platelet Count 149 10^3/uL (130-400); RBC 4.95 10^6/uL (4.36-5.78); RDW 11.9 % (11.8-14.1); RDW-SD 39.2 fL; WBC 6.27 10^3/uL (4.4-10.8)
[2025-11-11 14:34] LABS: Hemoglobin A1C 5.7 % (<5.7)
[2025-11-11 14:36] LABS: ALT 29 U/L (10-49); AST 35 U/L (<34); Albumin 4.5 g/dL (3.2-5.0); Alkaline Phosphatase 65 U/L (46-116); Anion Gap 9 mmol/L (3-11); BUN 19 mg/dL (9-23); Bilirubin, Total 0.6 mg/dL (0.2-1.2); CO2 25.0 mmol/L (20.0-31.0); Calcium 10.0 mg/dL (8.3-10.6); Chloride 107 mmol/L (98-107); Cholesterol 162 mg/dL (<200); Glucose 95 mg/dL (74-106); HDL Cholesterol 50 mg/dL (>or=40); Potassium 4.2 mmol/L (3.5-5.1); Sodium 141 mmol/L (136-145); Total Protein 7.6 g/dL (5.7-8.2)
[2025-11-11 22:09] LABS: PSA, Screening 0.4 ng/mL (<=2.5)
== END 2025-11-11 13:22 | disposition home or self-care (01) ==
LOC: LBO 13:21
PROVIDERS: PCP Specialist/Technologist Athletic Trainer; Visit Provider Specialist/Technologist Athletic Trainer
DX: E11.9 Type 2 diabetes mellitus without complications (principal); K21.9 Gastro-esophageal reflux disease without esophagitis; I10 Essential (primary) hypertension; Z13.6 Encounter for screening for cardiovascular disorders; Z12.5 Encounter for screening for malignant neoplasm of prostate
CPT/HCPCS: 36415; 80053; 80061; 84153; 83036; 85025